=== PATIENT | female | born 1955 | race Caucasian/White ===

== ENCOUNTER → 2016-10-18 | Outpatient (CLI) | payer OTHER ==
--- NOTE | 2016-10-18 15:22 | US ---
EXAMINATION TYPE: US venous doppler duplex LE BI DATE OF EXAM: 10/18/2016 1:09 PM COMPARISON: NONE CLINICAL HISTORY: 182.401 Leg Pain,182.402 RTM 79.661. S/P left hip replacement, left leg swelling SIDE PERFORMED: Bilateral VESSELS IMAGED: External Iliac Vein (EIV) Common Femoral Vein Deep Femoral Vein Greater Saphenous Vein * Femoral Vein Popliteal Vein Small Saphenous Vein * Proximal Calf Veins (* superficial vessels) Right Leg: Negative for DVT Left Leg: Negative for DVT, probable Aguilera's Cyst left pop fossa= 3.8 x 2.1 x 2.2 cm IMPRESSION: No evidence for DVT.
== END | disposition home or self-care (01) ==
LOC: RADUSWWP 12:44
PROVIDERS: ATTEND Orthopaedic Surgery
DX: M79.606 Pain in leg, unspecified (principal); M79.89 Other specified soft tissue disorders
CPT/HCPCS: 93970

== ENCOUNTER → 2017-01-11 | Outpatient (CLI) | payer OTHER ==
--- NOTE | 2017-01-11 12:08 | XR ---
EXAMINATION TYPE: XR abdomen 1V DATE OF EXAM ORDERED: 01/11/2017 10:49 AM HISTORY: R10.32 Left lower quadrant pain. COMPARISON: None. FINDINGS: There is a left hip arthroplasty in place. The abdominal gas pattern is normal. There is no evidence of obstruction or free air. There is a ques tionable 4.3 mm calcification overlying the upper pole of the left kidney. There is a phlebolith in t he left hemipelvis. There is mild degenerative change in the lumbar spine. IMPRESSION: I CANNOT EXCLUDE A LEFT UPPER POLE RENAL CALCULUS.
== END | disposition home or self-care (01) ==
LOC: RADXRMAIN 10:33
PROVIDERS: ATTEND Family Medicine
DX: R10.32 Left lower quadrant pain (principal)
CPT/HCPCS: 74000

== ENCOUNTER 2017-02-08 06:26 | Day surgery (SDC) | payer OTHER ==
[2017-02-07 10:10] VITALS: BMI 24.7
[~2017-02-08 06:26] MED LIST: DEXAMETHASONE SOD PHOSPHATE 10 MG/ML 1 ML VIAL IV ONE; HEPARIN SODIUM,PORCINE 5,000 UNIT/ML 1 ML VIAL SQ ONE; HYDROmorphone 1 MG/ML 1 ML SYRINGE IVP PRN; LACTATED RINGERS 1,000 ML IV SCH; MIDAZOLAM 2 MG/2 ML VIAL IV PRN; ONDANSETRON 4 MG/2 ML VIAL IVP ONE; Pre Op ABX Message 1 EACH MISC MISCELLANE ONE; SCOPOLAMINE 1.5MG/72HR PATCH TRANSDERM ONE
[2017-02-08 06:46] VITALS: RESP 18; TEMP 98.1
[2017-02-08] MEDS ORDERED: LIDOCAINE 1% 20 ML VIAL (10MG/ML) FOR IV START INTRADERMA ONE (07:03)
[2017-02-08] MEDS ORDERED: PROPOFOL 10 MG/ML 20 ML VIAL IV ONE (08:06)
[2017-02-08] MEDS ORDERED: MIDAZOLAM 2 MG/2 ML VIAL ONE (08:06)
[2017-02-08] MEDS ORDERED: fentaNYL (PF) 50 MCG/ML 2 ML AMP ONE (08:06)
[2017-02-08] MEDS ORDERED: SODIUM CHLORIDE 0.9% 50 ML with ceFAZolin 2,000 MG IV ONE ×2 (08:06)
[2017-02-08] MEDS ORDERED: KETOROLAC 30 MG/ML 1 ML VIAL ONE (08:06)
[2017-02-08] MEDS ORDERED: ePHEDrine 50 MG/ML 1 ML AMP ONE (08:06)
[2017-02-08] MEDS ORDERED: BUPIVACAIN-EPI 0.25%-1:200,000 30 ML VIAL SQ ONE (08:24)
[2017-02-08] MEDS ORDERED: LACTATED RINGERS 1,000 ML IV ONE (09:06)
[2017-02-08 09:34] VITALS: BP 102/61; PULSE 90
--- NOTE | 2017-02-08 14:43 | P.OP ---
Date of Procedure: 02/08/17 Preoperative Diagnosis: Multiple infected cysts in back and chest and abdomen Postoperative Diagnosis: Same Procedure(s) Performed: Excision multiple's infected cyst in back,chest and abdominal wall Anesthesia: MAC, local Pathology: other Condition: stable Indications for Procedure: 61 years old female presents with multiple draining cyst along the upper back and abdomen and chest. Informed consent obtained and she elected to undergo surgical excision Description of Procedure: The patient was brought to the operating room and placed in lateral decubitus position. IV sedation was given as per anesthesia team. A timeout was performed to verify correct patient and correct procedure. Chlorhexidine was used to prep the skin followed by application of sterile drapes. A 2 x 0.8 x 1.2 cm skin incision was made overlying the area of maximum fluctuance in the upper back. The entire cyst was excised along with the wall using Bovie electrocautery. The resulting defect was closed in 2 layers using 3-0 Vicryl and interrupted sutures of 3-0 nylon. Patient was then positioned supine. There were 3 areas of purulent drainage along left upper abdomen and left chest. A 1 x 2 cm skin incision was made to remove the exudates of skin and underlying subcutaneous tissue. Another 1 x 2.2 cm skin incision was made to remove the underlying cyst. There were closed using interrupted sutures of 3-0 Nylon. Clean dressings applied. Patient tolerated procedure well Final Pathologic Diagnosis A. SKIN AND SUBCUTANEOUS TISSUE, BACK, EXCISION: EPIDERMAL INCLUSION CYST WITH ADJACENT CHRONIC INFLAMMATION. B. SKIN AND SUBCUTANEOUS TISSUE, ABDOMEN AND LEFT CHEST, EXCISION: EPIDERMAL INCLUSION CYST WITH FEATURES OF RUPTURE. * Gross Description A. Specimen is labeled back cyst and consists of a 2 x 0.8 cm unoriented skin ellipse excised to a maximum depth of 1.1 cm. The puckered garcia surface exhibits a near central 0.6 x 0.3 cm defect, which is more than 0.1 cm from the closest cutaneous resection margin. The resection margin is inked black and the specimen serially sectioned. Cut surfaces show an approximately 0.8 cm irregular smooth walled intact cyst devoid of contents. The cyst is surrounded by fibrous and fatty soft tissue. Entirely submitted. 1C7NS B. Specimen is labeled abdomen and left chest cyst and consists of 3 unoriented, undesignated ellipses of garcia skin ranging from 0.7 to 2.3 cm in greatest dimension. The skin surface of each fragment is slightly puckered and a discrete lesion is not seen grossly. The resection margin of each fragment is inked black and the two largest fragments are serially sectioned. Cut surfaces of the largest fragment show an approximately 1 cm focally abscessed area with soft red-garcia cut surfaces. The abscess area grossly extends to the cutaneous resection margin. Cut surfaces of the second fragment are firm garcia and exhibit a 0.2 cm possible cystic lesion. The two smallest fragments are bisected and cut surfaces of both fragments are rubbery garcia. A distinct cystic lesion is not identified
== END 2017-02-08 10:24 | disposition home or self-care (01) ==
LOC: OR 06:26
PROVIDERS: ATTEND Surgery
DX: L72.0 Epidermal cyst (principal); I10 Essential (primary) hypertension; Z91.041 Radiographic dye allergy status; Z79.899 Other long term (current) drug therapy
CPT/HCPCS: 88304; 87070; 87205; 87075; 87077; 87186; 11402 ×2; 12031; 11403; J2250; J1644; J1100; J2405; J3010; J1885; J0690; J2704

== ENCOUNTER → 2017-07-23 | Outpatient (CLI) | payer OTHER ==
--- NOTE | 2017-07-23 15:17 | XR ---
Right foot HISTORY: Right foot pain, trauma 3 views of the right foot No comparisons Bone mineralization is reduced. Alignment and joint spaces are maintained. Normal variant segmentatio n anomaly fourth digit. There is a plantar calcaneal spur. IMPRESSION: No acute fracture or dislocation.
--- NOTE | 2017-07-23 15:18 | XR ---
Right ankle HISTORY: Trauma and pain 3 views of the right ankle No comparisons There is soft tissue swelling present. Bone mineralization is reduced. Alignment and joint spaces are maintained. There is a plantar calcaneal spur. IMPRESSION: No acute fracture or dislocation.
--- NOTE | 2017-07-23 15:19 | XR ---
Right knee HISTORY: Right knee pain Reviews of the right knee No comparisons There is marginal spurring and joint space loss especially in the medial compartment. Small suprapate llar joint effusion is suspected. Bone mineralization is reduced. Alignment is maintained. There is s oft tissue swelling. There are vascular calcifications suspected. IMPRESSION: Osteoarthritis, small joint effusion.
== END | disposition home or self-care (01) ==
LOC: RADXRMAIN 12:40
PROVIDERS: ATTEND Family Medicine
DX: M17.11 Unilateral primary osteoarthritis, right knee (principal); M79.671 Pain in right foot; M25.571 Pain in right ankle and joints of right foot

== ENCOUNTER → 2017-08-28 | Outpatient (CLI) | payer OTHER ==
[2017-08-28 15:08] LABS: Basophils # (A) 0.1 k/uL (0-0.2); Basophils % (A) 1 %; CHCM 32.2; Eosinophils # (A) 1.2 k/uL (0-0.7); Eosinophils % (A) 10 %; HDW 2.45; HGB 11.9 gm/dL (11.4-16.0); Luc # (Auto) 0.41; Luc % (Auto) 3; Lymphocytes # (A) 1.9 k/uL (1.0-4.8); Lymphocytes % (A) 15 %; MCV 96.8 fL (80.0-100.0); Mean Platelet Volume 6.5; Monocytes # (A) 0.7 k/uL (0-1.0); Monocytes % (A) 6 %; Neutrophils # (A) 7.9 k/uL (1.3-7.7); Neutrophils % (A) 66 %; RBC 3.83 m/uL (3.80-5.40); RDW 12.8 % (11.5-15.5); WBC 12.1 k/uL (3.8-10.6); WBC (Perox) 12.67
[2017-08-28 15:19] LABS: Appearance,Urine Cloudy (Clear); Bacteria,Urine Many /hpf; Bilirubin,Urine Negative (Negative); Glucose,Urine (UA) Negative (Negative); Ketones,Urine Negative (Negative); Leukocyte Esterase,Urine Moderate (Negative); Nitrite,Urine Negative (Negative); PH, Urine 5.5 (5.0-8.0); Particle Count 7836; Protein,Urine 1+ (Negative); RBC,Urine 114 /hpf (0-5); Specific Gravity,Urine 1.025 (1.001-1.035); Squamous Epithelial Cell,Urine 17 /hpf (0-4); UA Billing (MACRO vs. MICRO) MICRO; WBC,Urine 7 /hpf (0-5)
[2017-08-28 16:01] LABS: Erythrocyte Sedimentation Rate 67 mm/hr (0-20)
== END | disposition home or self-care (01) ==
LOC: LABWHC1 14:28
PROVIDERS: ATTEND Physician Assistant
DX: S70.02XS Contusion of left hip, sequela (principal)
CPT/HCPCS: 36415; 81001; 85025; 85652; 86140

== ENCOUNTER → 2018-03-04 | Outpatient (CLI) | payer OTHER ==
--- NOTE | 2018-03-04 15:09 | BD ---
EXAMINATION TYPE: Axial Bone Density DATE OF EXAM: 03/04/2018 COMPARISON: NONE CLINICAL HISTORY: 62 YR OLD FEMALE.....ICD-10 CODE: M19.90 OA Height: 60.4 Weight: 153 FRAX RISK QUESTIONS: Family History (Parent hip fracture): YES History of Fracture in Adulthood: YES Current Tobacco Use: YES, 1 PAC DAILY RISK FACTORS HISTORY OF: Hip Fracture LT HIP FX, 2 YRS AGO RT SIDE OF PELVIS FRACTURED NOW, BUT NOT RT HIP History of Wrist Fracture: LT WRIST FX WITH SURGICAL REPAIR...> 49 YRS OLD Surgery to LT HIP, TOTAL HIP REPLACEMENT 2 YRS AGO Family History of Osteoporosis: YES, MOTHER WITH BOTH HIP FX, AND SACRAL FX Active: NO USING WHEELCHAIR AND WALKER Diet low in dairy products/other sources of calcium: NO Postmenopausal woman: YES AT AGE 44 Take estrogen and/or progesterone medications: IN PAST, FOR COUPLE YRS ONLY Lost more than 2 inches in height since high school: YES Frequent falls: UNSTEADY MEDICATIONS: Additional Medications: BP MEDS, PAXIL, XANAX, NSAIDS, PAIN MEDS Additional History: DIET CONTROLLED DIABETES, MULTIPLE FXS, OSTEOARTHRITIS EXAM MEASUREMENTS: Bone mineral densitometry was performed using the [employer] System. Bone mineral density as measured about the Lumbar spine is: ----- L1-L4(G/cm2): 1.087 T Score Values are as follows: ----- L1: -1.1 ----- L2: -1.1 ----- L3: -0.6 ----- L4: -0.5 ----- L1-L4: -0.8 Bone mineral density FIRST BONE DENSITY AT MPH Bone mineral density about the R hip (g/cm2): 0.666 T Score values are as follows: -----R Neck: -2.6 -----R Total: -2.7 Bone mineral density FIRST BONE DENSITY AT MPH FRAX%S: THERE IS A 37.4% CHANCE OF A MAJOR OSTEOPOROTIC FX AND A 8.3% FOR A HIP FX.....PROBABILIT Y OF FX IN 10 YRS TIME IMPRESSION: Osteoporosis NOTE: T-SCORE=SD OF THE YOUNG ADULT MEAN.
== END | disposition home or self-care (01) ==
LOC: RADBDWWP 12:25
PROVIDERS: ATTEND Family Medicine
DX: M81.0 Age-related osteoporosis without current pathological fracture (principal)
CPT/HCPCS: 77080

== ENCOUNTER → 2019-04-28 | Outpatient (CLI) | payer OTHER ==
--- NOTE | 2019-04-28 13:47 | XR ---
EXAMINATION TYPE: XR Hip Bilateral Complete DATE OF EXAM: 04/28/2019 COMPARISON: NONE HISTORY: Pain TECHNIQUE: 2 views submitted of each hip FINDINGS: There is nonunion chronic fractures involving the superior and inferior pubic ramus of the right hip. Moderate concentric narrowing of the hip joint. No erosive changes. Chronic appearing deformities of the left superior and inferior pubic ramus compatible with remote fr acture. Postoperative change in near-anatomic alignment. IMPRESSION: 1. Right hip arthropathy with findings suggestive of remote nonunion fractures involving the right hennessy perior and inferior pubic rami. 2. Postsurgical change involving the left hip with healed remote fractures involving the left superio r and inferior pubic rami.
--- NOTE | 2019-04-28 13:49 | XR ---
EXAM TYPE: LUMBAR SPINE X RAY SERIES COMPARISON: NONE HISTORY: Pain TECHNIQUE: 4 views are submitted. FINDINGS: Alignment is anatomic. The pedicles are intact. The transverse processes are intact. There is no s pondylolysis or spondylolisthesis. There are 3 calcifications overlying the right kidney all measuri ng less than 5 mm. There are 2 calcifications overlying the left kidney the largest measuring 4.5 mm. Vascular calcifications are noted. There is multilevel moderate to severe degenerative disc disease with facet arthropathy and grade 1 a nterolisthesis L5 on S1. Severe facet arthropathy L5-S1. Diffuse osteopenia noted. IMPRESSION: 1. Multilevel moderate to severe degenerative disc disease with facet arthropathy and grade 1 anterol isthesis L5 on S1. 2. Correlate for bilateral nephrolithiasis
== END | disposition home or self-care (01) ==
LOC: RADXRMAIN 13:10
PROVIDERS: ATTEND Family Medicine
DX: M16.11 Unilateral primary osteoarthritis, right hip (principal); M43.16 Spondylolisthesis, lumbar region; M51.36 Other intervertebral disc degeneration, lumbar region; M46.96 Unspecified inflammatory spondylopathy, lumbar region; Z98.890 Other specified postprocedural states
CPT/HCPCS: 72110; 73521

== ENCOUNTER → 2019-05-20 | Outpatient (CLI) | payer OTHER ==
--- NOTE | 2019-05-20 14:21 | MR ---
EXAMINATION TYPE: MR lumbar spine wo con DATE OF EXAM: 05/20/2019 1:39 PM COMPARISON: NONE HISTORY: Spondylolisthesis, lumbar region Multiplanar, MultiSpin echo imaging of the lumbar spine was performed. L1-L2: Severe disc desiccation. Moderate circumferential disc bulge greatest posteriorly with effacem ent of the ventral thecal sac. No evidence for central stenosis or lateral recess stenosis. Foramina are patent bilaterally. L2-L3: Severe disc desiccation. Moderate circumferential disc bulge greatest posteriorly with effacem ent of the ventral thecal sac. No evidence for central stenosis or lateral recess stenosis. Foramina are patent bilaterally. L3-L4: Severe disc desiccation. Moderate circumferential disc bulge greatest posteriorly with effacem ent of the ventral thecal sac. No evidence for central stenosis or lateral recess stenosis. Foramina are patent bilaterally. L4-L5: Severe disc desiccation. Moderate circumferential disc bulge greatest posteriorly with effacem ent of the ventral thecal sac. No evidence for central stenosis or lateral recess stenosis. Foramina are patent bilaterally. L5-S1: Severe disc desiccation vacuum disc. Grade 1 anterolisthesis L5 on S1 measuring 6 mm. Subligam entous posterocentral disc herniation effaces the ventral thecal sac. Borderline lateral recess steno sis bilaterally. No central stenosis present. Lumbar segments are intact. No paraspinal masses are identified. Conus medullaris has a normal appe arance. IMPRESSION: 1. Multilevel degenerative disc disease with disc bulging. Disc herniation L5-S1 with bilateral later al recess stenosis suspected. See above.
== END | disposition home or self-care (01) ==
LOC: RADMRIMAIN 12:19
PROVIDERS: ATTEND Family Medicine
DX: M51.26 Other intervertebral disc displacement, lumbar region (principal); M51.27 Other intervertebral disc displacement, lumbosacral region; M43.17 Spondylolisthesis, lumbosacral region; M51.36 Other intervertebral disc degeneration, lumbar region
CPT/HCPCS: 72148

== ENCOUNTER → 2019-09-10 | Outpatient (CLI) | payer MEDICARE ==
--- NOTE | 2019-09-10 15:53 | BD ---
EXAMINATION TYPE: Axial Bone Density DATE OF EXAM: 09/10/2019 COMPARISON: 03.04.2018 CLINICAL HISTORY: 64 YR OLD FEMALE....ICD-10 CODE: Z78.0 POST MENOPAUSAL Height: 60.4 Weight: 120 FRAX RISK QUESTIONS: Family History (Parent hip fracture): YES History of Fracture in Adulthood: YES Current Tobacco Use: YES RISK FACTORS HISTORY OF: Hip Fracture LT HIP, FROM FALL, RODDED WITH SCREWS, 2-3 YRS AGO Surgery to LT HIP...MARIBELL AND PINS Family History of Osteoporosis: YES, HER MOTHER AND MATERNAL AUNTS X2...WITH BROKEN HIPS Postmenopausal woman: YES AT AGE 47 YRS OLD Take estrogen and/or progesterone medications: IN PAST FOR ABOUT 1 YR Hyperparathyroidism: NO Adrenal Insufficiency: NO MEDICATIONS: Osteoporosis Medications: YES, FOSAMAX ONCE A WEEK FOR ABOUT 1 1/2 YRS Additional Medications: BP MEDS, PAXIL, XANAX, DIABETIC MEDS, Additional History: OSTEOPOROSIS, HYPERTENSION, DIABETIC, OSTEOARTHRITIS EXAM MEASUREMENTS: Bone mineral densitometry was performed using the [employer] System. Bone mineral density as measured about the Lumbar spine is: ----- L1-L4(G/cm2): 1.178 T Score Values are as follows: ----- L1: -0.5 ----- L2: -0.1 ----- L3: 0.0 ----- L4: 0.2 ----- L1-L4: 0.0 Bone mineral density has: Increased 8.4% since study of: 03.04.2018 Bone mineral density about the R hip (g/cm2): 0.643 T Score values are as follows: -----R Neck: -2.9 -----R Total: -2.9 Bone mineral density has: Decreased -3.5% since study of: 03.04.2018 FRAX%s: THERE IS A 41.1% CHANCE FOR A MAJOR OSTEOPOROTIC FX AND A 12.2% FOR HIP.....PROBABILITY FOR FX IN 10 YRS TIME IMPRESSION: Osteoporosis of the right femur. NOTE: T-SCORE=SD OF THE YOUNG ADULT MEAN.
--- NOTE | 2019-09-14 08:53 | MM ---
Reason for exam: screening (asymptomatic). History: Patient is postmenopausal. Physical Findings: A clinical breast exam by your physician is recommended on an annual basis and results should be correlated with mammographic findings. MG Screening Mammo w CAD Bilateral CC and MLO view(s) were taken. No prior studies available for comparison. The breast tissue is heterogeneously dense. This may lower the sensitivity of mammography. There is no discrete abnormality. ASSESSMENT: Negative, BI-RAD 1 RECOMMENDATION: Routine screening mammogram of both breasts in 1 year.
== END | disposition home or self-care (01) ==
LOC: RADMAMWWP 14:26
PROVIDERS: ATTEND Family Medicine
DX: Z12.31 Encounter for screening mammogram for malignant neoplasm of breast (principal); M81.8 Other osteoporosis without current pathological fracture; Z78.0 Asymptomatic menopausal state
CPT/HCPCS: 77067; 77080

== ENCOUNTER → 2019-10-02 | Outpatient (CLI) | payer MEDICARE ==
[~2019-10-02] MED LIST changes: -DEXAMETHASONE SOD PHOSPHATE 10 MG/ML 1 ML VIAL IV ONE; -HEPARIN SODIUM,PORCINE 5,000 UNIT/ML 1 ML VIAL SQ ONE; -HYDROmorphone 1 MG/ML 1 ML SYRINGE IVP PRN; -LACTATED RINGERS 1,000 ML IV SCH; -MIDAZOLAM 2 MG/2 ML VIAL IV PRN; -ONDANSETRON 4 MG/2 ML VIAL IVP ONE; -Pre Op ABX Message 1 EACH MISC MISCELLANE ONE; -SCOPOLAMINE 1.5MG/72HR PATCH TRANSDERM ONE; +SODIUM CHLORIDE 0.9% 500 ML 500 ML in EMPTY BAG 1 BAG IV PRN; +ZOLEDRONIC ACID 5 MG in SODIUM CHLORIDE 0.9% 100 ML IV NR
[2019-10-02 12:45] VITALS: RESP 16
[2019-10-02 12:56] VITALS: BP 156/90; PULSE 60; TEMP 98.3
== END | disposition home or self-care (01) ==
LOC: PROCWHC3 12:13
PROVIDERS: ATTEND Family Medicine
DX: M81.0 Age-related osteoporosis without current pathological fracture (principal)
CPT/HCPCS: 96365; J3489

== ENCOUNTER → 2020-01-26 | Outpatient (CLI) | payer MEDICARE ==
[2020-01-26 18:55] LABS: African American GFR (CKD) 68.5 (60.0-200.0); Anion Gap 7.2 mmol/L (4.00-12.00); Calcium 9.8 mg/dL (8.7-10.3); Carbon Dioxide 23.8 mmol/L (21.6-31.8); Chol/HDL Ratio 3.17; LDL Cholesterol,Calculated 133.4 mg/dL (0.0-131.0); Non-African American GFR(CKD) 59.1 (60.0-200.0); VLDL Calculation 16.6 mg/dL (5.00-40.00)
[2020-01-26 23:07] LABS: Hemoglobin A1C 7.9 % (4.0-6.0)
== END | disposition home or self-care (01) ==
LOC: LABWHC1 11:41
PROVIDERS: ATTEND Internal Medicine
DX: E11.65 Type 2 diabetes mellitus with hyperglycemia (principal)
CPT/HCPCS: 36415; 80048; 80061; 83036

== ENCOUNTER → 2020-04-25 | Outpatient (CLI) | payer MEDICARE ==
[2020-04-25 20:47] LABS: Hemoglobin A1C 6.9 % (4.0-6.0)
[2020-04-25 21:34] LABS: Anion Gap 5.5 mmol/L (4.00-12.00); BUN/Creat Ratio 20.91 Ratio (12.00-20.00); Calcium 9.4 mg/dL (8.7-10.3); Carbon Dioxide 22.5 mmol/L (21.6-31.8); Chol/HDL Ratio 2.45; LDL Cholesterol,Calculated 59.8 mg/dL (0.0-131.0); Non-African American GFR(CKD) 52.6 (60.0-200.0); Potassium 4.8 mmol/L (3.5-5.5); VLDL Calculation 20.2 mg/dL (5.00-40.00)
== END | disposition home or self-care (01) ==
LOC: LABWHC1 13:01
PROVIDERS: ATTEND Internal Medicine
DX: E11.65 Type 2 diabetes mellitus with hyperglycemia (principal)
CPT/HCPCS: 36415; 80048; 80061; 83036

== ENCOUNTER → 2020-10-10 | Outpatient (CLI) | payer MEDICARE ==
--- NOTE | 2020-10-10 09:32 | BD ---
EXAMINATION TYPE: Axial Bone Density DATE OF EXAM: 10/10/2020 COMPARISON: 09.10.2019 CLINICAL HISTORY: 65 YR OLD FEMALE.....ICD-10 CODE: OSTEOPOROSIS Height: 60 Weight: 115 FRAX RISK QUESTIONS: Family History (Parent hip fracture): YES History of Fracture in Adulthood: YES Secondary Osteoporosis: YES 1. Type 1 Diabetes: YES Current Tobacco Use: YES RISK FACTORS HISTORY OF: Hip LT HIP....WITH REPLACEMENT, RT HIP FEMUR FX >49 YRS OLD History of Wrist Fracture: LT WRIST WITH SURGICAL REPAIR PLATES AND SCREWS, >49 YRS OLD Surgery to LT HIP AND LT WRIST Family History of Osteoporosis: YES, MOTHER, WITH HIP FX Postmenopausal woman: YES AT AGE 49 YRS OLD Take estrogen and/or progesterone medications: YES IN THE PAST FOR ABOUT 3 YRS Lost more than 2 inches in height since high school: YES Hyperparathyroidism: NO Adrenal Insufficiency: NO MEDICATIONS: Additional Medications: BP MEDS, XANAX, DIABETIC MEDS AND INSULIN, RECENTLY REMOVED FROM THE INSULIN, Additional History: DIABETIC, HYPERTENSION, MULTIPLE FXS EXAM MEASUREMENTS: Bone mineral densitometry was performed using the [employer] System. Bone mineral density as measured about the Lumbar spine is: ----- L1-L4(G/cm2): 1.186 T Score Values are as follows: ----- L1: -0.2 ----- L2: -0.4 ----- L3: -0.3 ----- L4: 0.7 ----- L1-L4: 0.0 Bone mineral density has: Decreased -0.2% since study of: 09.10.2019 Bone mineral density about the R hip (g/cm2): 0.630 T Score values are as follows: -----R Neck: -2.9 -----R Total: -2.9 Bone mineral density has: Decreased -2.0% since study of: 09.10.2019 FRAX%s: THERE IS A 34.2% CHANCE FOR A MAJOR OSTEOPOROTIC FX AND A 9.0% FOR HIP.......PROBABILITY FO R FX IN 10 YRS TIME IMPRESSION: Osteoporosis (T Score less than -2.5). There is increased fracture risk and therapy is usually indicated based on age. Re-Screen 1-2 years. NOTE: T-SCORE=SD OF THE YOUNG ADULT MEAN.
--- NOTE | 2020-10-11 10:40 | MM ---
Reason for exam: screening (asymptomatic). Last mammogram was performed 1 year and 1 month ago. History: Patient is postmenopausal. Physical Findings: A clinical breast exam by your physician is recommended on an annual basis and results should be correlated with mammographic findings. MG 3D Screening Mammo W/Cad Bilateral CC and MLO view(s) were taken. Prior study comparison: September 10, 2019, bilateral MG screening mammo w CAD. The breast tissue is heterogeneously dense. This may lower the sensitivity of mammography. Finding #1: There is a 12 mm equal density (isodense), oval mass in the lower inner quadrant of the left breast. Finding #2: There are typically benign calcifications in both breasts. Nodule cluster 5mm left outer breast. ASSESSMENT: Incomplete: need additional imaging evaluation, BI-RAD 0 RECOMMENDATION: Special view mammogram of the left breast. If lesion persists on supplemental views, image directed ultrasound is recommended. [facility] will attempt to contact patient to return for supplemental views and ultrasound if indicated.
== END | disposition home or self-care (01) ==
LOC: RADBDWWP 07:46
PROVIDERS: ATTEND Family Medicine
DX: Z12.31 Encounter for screening mammogram for malignant neoplasm of breast (principal); M81.0 Age-related osteoporosis without current pathological fracture
CPT/HCPCS: 77063; 77067; 77080

== ENCOUNTER → 2020-10-20 | Outpatient (CLI) | payer MEDICARE ==
--- NOTE | 2020-10-21 10:22 | MM ---
Reason for exam: additional evaluation requested from abnormal screening. Last mammogram was performed less than 1 month ago. History: Patient is postmenopausal. Physical Findings: Nurse Summary: 1cm sebaceous cyst in the left breast at 7 o'clock (nurse nathan). MG 3D Work Up W/Cad LT Spot compression CC, spot compression MLO, and LM view(s) were taken of the left breast. Prior study comparison: October 10, 2020, bilateral MG 3d screening mammo w/cad. September 10, 2019, bilateral MG screening mammo w CAD. There are scattered fibroglandular densities. Focal asymmetry on CC, not on compression. Short term follow up recommended. These results were verbally communicated with the patient and result sheet given to the patient on 10/20/20. ASSESSMENT: Probably benign, BI-RAD 3 RECOMMENDATION: Follow-up diagnostic mammogram of the left breast in 6 months. Manage on a clinical basis with regard to palpable area left inferior MLO.
== END | disposition home or self-care (01) ==
LOC: RADMAMWWP 14:42
PROVIDERS: ATTEND Family Medicine
DX: R92.8 Other abnormal and inconclusive findings on diagnostic imaging of breast (principal)
CPT/HCPCS: 77065; G0279; 77061

== ENCOUNTER → 2020-11-18 | Outpatient (CLI) | payer MEDICARE ==
[2020-11-18 08:23] VITALS: BP 129/73; PULSE 100; RESP 16; TEMP 98.7
== END | disposition home or self-care (01) ==
LOC: PROCWHC3 08:12
PROVIDERS: ATTEND Family Medicine
DX: M81.0 Age-related osteoporosis without current pathological fracture (principal)
CPT/HCPCS: 96365; J3489

== ENCOUNTER → 2021-03-27 | Outpatient (CLI) | payer MEDICARE ==
--- NOTE | 2021-03-27 12:14 | CT ---
EXAMINATION TYPE: CT abdomen pelvis wo con DATE OF EXAM: 03/27/2021 COMPARISON: None HISTORY: 65-year-old female R10, Abdomen pain, rapid weight loss, back pain, decreased appetite. CT DLP: 203.9 mGycm. Automated exposure control for dose reduction was used. TECHNIQUE: Contiguous axial scanning of the abdomen and pelvis without IV contrast. Coronal and sagit jesse reconstructions performed. FINDINGS: Heart normal size without pericardial effusion. Small hiatal hernia. Bands of atelectasis in the lowe r lungs. Noncontrast appearance of the liver, gallbladder, right adrenal gland, spleen, and pancreas show no g ross abnormality. Mild diffuse low-density thickening of the left adrenal gland without discrete nodularity. 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 Bilateral nephrolithiasis measuring up to 8 mm. There is moderate right-sided hydronephrosis. 8 mm and 7 mm calculi within minor calyceal systems on the r ight. Unable to clearly identify the right ureter. There may be a UPJ stricture. No dilated small bowel, free fluid, or free air. No obvious mesenteric or retroperitoneal lymphadenop athy. Moderate atherosclerotic calcifications abdominal aorta. Moderate stool within the left side of the colon. Sigmoid diverticulosis without pericolonic inflamma tory change. Bladder not distended. Uterus not seen. Neither ovary clearly delineated from clustered bowel loops. No abnormal fluid collection in the pelvis or pelvic lymphadenopathy. Bones: Left total hip arthroplasty. Osteopenia. Chronic healed fracture deformities both superior and inferior pubic rami. Mild degenerative change right hip. Advanced hypertrophic facet arthropathy mid to lower lumbar spine with a grade 1, nearly grade 2 anterolisthesis L5-S1. Baastrup's disease. Mode rate to advanced degenerative disc disease throughout. IMPRESSION: 1. Incidental horseshoe kidney with nephrolithiasis measuring up to 8 mm. A couple calculi measuring up to 8 mm are present in the right renal minor calyces. There is moderate right-sided hydronephrosis but the right ureter does not appear dilated. Unable to exclude underlying UPJ stricture. 2. Sigmoid diverticulosis. Moderate stool burden.
== END | disposition home or self-care (01) ==
LOC: RADCTMAIN 07:47
PROVIDERS: ATTEND Family Medicine
DX: N13.2 Hydronephrosis with renal and ureteral calculous obstruction (principal); Q63.1 Lobulated, fused and horseshoe kidney; K57.30 Diverticulosis of large intestine without perforation or abscess without bleeding
CPT/HCPCS: 74176

== ENCOUNTER → 2021-05-10 | Outpatient (CLI) | payer MEDICARE ==
[~2021-05-10] MED LIST changes: +FUROSEMIDE 10 MG/ML 2 ML VIAL IV ONE; -SODIUM CHLORIDE 0.9% 500 ML 500 ML in EMPTY BAG 1 BAG IV PRN; -ZOLEDRONIC ACID 5 MG in SODIUM CHLORIDE 0.9% 100 ML IV NR
--- NOTE | 2021-05-10 14:41 | NM ---
EXAMINATION TYPE: NM lasix renogram DATE OF EXAM: 05/10/2021 COMPARISON: NONE HISTORY: Hydronephrosis Following administration of 9.9 mCi Tc 99m MAG3 with 20mg Lasix. Immediate images post injection FINDINGS: Left: 26.4 %. Right: 73.6 %. Max renal flow left: 11 minutes. Max renal flow right: 73.6 minutes. Asymmetric accumulation of radiotracer within both renal collecting . Findings are suggestive of hydr onephrosis on the left. After the administration of Lasix, there is used excretion from from the righ t kidney. T 1/2 left: 26.4 MINUTES minutes. T 1/2 right: N/A minutes. IMPRESSION: Abnormal renal split function as measured above with findings compatible with right-sided hydronephro sis.
== END | disposition home or self-care (01) ==
LOC: RADNMMAIN 12:41
PROVIDERS: ATTEND Urology
DX: N13.30 Unspecified hydronephrosis (principal)
CPT/HCPCS: 78708; A9562

== ENCOUNTER → 2021-05-26 | Outpatient (CLI) | payer MEDICARE ==
[2021-05-26 12:11] LABS: Basophils # (A) 0.1 k/uL (0-0.2); Basophils % (A) 1 %; Eosinophils # (A) 0.4 k/uL (0-0.7); Eosinophils % (A) 4 %; HCT 37.4 % (34.0-46.0); HGB 12.1 gm/dL (11.4-16.0); Lymphocytes # (A) 2.1 k/uL (1.0-4.8); Lymphocytes % (A) 25 %; MCH 32.8 pg (25.0-35.0); MCHC 32.2 g/dL (31.0-37.0); MCV 101.8 fL (80.0-100.0); Macrocytosis Slight; Mean Platelet Volume 7.5; Monocytes # (A) 0.5 k/uL (0-1.0); Monocytes % (A) 6 %; Neutrophils # (A) 5.2 k/uL (1.3-7.7); Neutrophils % (A) 61 %; Platelet Count 278 k/uL (150-450); RBC 3.68 m/uL (3.80-5.40); RDW 13.4 % (11.5-15.5); WBC 8.6 k/uL (3.8-10.6)
[2021-05-26 12:32] LABS: Potassium 5.5 mmol/L (3.5-5.1)
[2021-05-26 12:50] LABS: Appearance,Urine Cloudy (Clear); Bacteria,Urine Occasional /hpf; Bilirubin,Urine Negative (Negative); Blood,Urine Negative (Negative); Color,Urine Yellow; Glucose,Urine (UA) 4+ (Negative); Hyaline Casts,Urine 1 /lpf (0-2); Ketones,Urine Negative (Negative); Leukocyte Esterase,Urine Moderate (Negative); Mucus,Urine Rare /hpf; Nitrite,Urine Negative (Negative); Protein,Urine Trace (Negative); RBC,Urine 4 /hpf (0-5); Squamous Epithelial Cell,Urine 18 /hpf (0-4); WBC,Urine 22 /hpf (0-5)
== END | disposition home or self-care (01) ==
LOC: LABPAT 11:24
PROVIDERS: ATTEND Urology
DX: Z01.812 Encounter for preprocedural laboratory examination (principal); N20.0 Calculus of kidney; Z01.818 Encounter for other preprocedural examination; N13.30 Unspecified hydronephrosis; E11.9 Type 2 diabetes mellitus without complications; N39.0 Urinary tract infection, site not specified
CPT/HCPCS: 36415; 80048; 81001; 85025; 87086

== ENCOUNTER 2021-06-01 09:13 | Day surgery (SDC) | payer MEDICARE ==
[2021-05-29 17:24] VITALS: BMI 18.1
--- NOTE | 2021-06-01 08:00 | P.HPIHPCON ---
History of Present Illness H&P Date: 05/29/21 This is a 65 yo female with hx of horseshoe kidney and right sided hydronephrosis. She underwent Mag3 renogram which showed evidence of delayed drainage. Of note she also hx multiple right sided renal stone. Discussed with her the option of doing a RPG and possibile ureteroscopy to better define her ureteral anatomy. Discussed if there is evidence of stricture then we can do ureteral balloon dilation at the same setting. Discussed with her the success of endoscopy for UPJ obstruction is low, and if she does fail that the next step is to proceed with a pyeloplasty. Discussed with her pyeloplasty would be more complicated given her horseshoe kidney. Discussed with her we'll try to address her renal stones at the same setting. Discussed that the stones are in the lower pole, they may not be accessible ureteroscope. Discussed with her the risk which includes but not limited to bleeding, infection, injury to the ureter. She understood all the risk and agreed to proceed Consent for Procedure: I have explained the operation/procedure to the patient, including the risks, benefits, side effects, alternative therapies (including not receiving the proposed treatment or service), the likelihood of the patient achieving his/her goals, and potential recuperation problems for the procedure/sedation/analgesia, as well as any blood products, if indicated. I also explained to the patient the risks, benefits and side effects of the alternatives, as well as the risks related to not receiving the proposed procedure, care, treatment, or services. Past Medical History Past Medical History: Diabetes Mellitus, Hypertension, Renal Disease Additional Past Medical History / Comment(s): kidney stones, osteoporosis History of Any Multi-Drug Resistant Organisms: None Reported Past Surgical History: Joint Replacement, Orthopedic Surgery Additional Past Surgical History / Comment(s): LEFT WRIST, left hip REPLACED, LITHOTRIPSY, PERCUTANIOUS KIDNEY STONE REMOVAL X2 Past Anesthesia/Blood Transfusion Reactions: No Reported Reaction Past Psychological History: Anxiety, Depression Smoking Status: Current every day smoker Past Alcohol Use History: Rare Additional Past Alcohol Use History / Comment(s): SMOKES 1/2 PPD FROM AGE 19 (1973) Past Drug Use History: None Reported - Past Family History Brother(s) Family Medical History: Cancer Additional Family Medical History / Comment(s): COLON Medications and Allergies Home Medications Medication Instructions Recorded Confirmed Type ALPRAZolam [Xanax] 1 mg PO BID 08/09/16 05/29/21 History PARoxetine HCL [Paxil] 40 mg PO DAILY 08/09/16 05/29/21 History Benazepril HCl [Lotensin] 20 mg PO QAM 02/07/17 05/29/21 History Acetaminophen Tab [Tylenol Tab] 500 - 1,000 mg PO BID PRN 02/08/17 05/29/21 History Atorvastatin [Lipitor] 20 mg PO DAILY 05/29/21 05/29/21 History Carboxymethylcellulose Sodium 1 drop BOTH EYES QID 05/29/21 05/29/21 History [Refresh Tears] Dapagliflozin Propanediol [Farxiga] 5 mg PO DAILY 05/29/21 05/29/21 History Insulin Glargine,Hum.rec.anlog 10 unit SQ QAM 05/29/21 05/29/21 History [Lantus Solostar Pen] Pioglitazone HCl 30 mg PO DAILY 05/29/21 05/29/21 History Vit C/E/Zn/Coppr/Lutein/Zeaxan 1 each PO DAILY 05/29/21 05/29/21 History [Preservision Areds 2 Softgel] amLODIPine BESYLATE 10 mg PO DAILY 05/29/21 05/29/21 History metFORMIN HCL [Glucophage] 1,000 mg PO BID-W/MEALS 05/29/21 05/29/21 History Allergies Allergy/AdvReac Type Severity Reaction Status Date / Time ivp dye AdvReac Mild Rash/Hives Uncoded 05/29/21 16:50 Surgical - Exam - General no distress, no pain - Eyes PERRL, normal ocular movement - ENT normal nares, normal mucosa - Respiratory normal expansion, normal respiratory effort - Abdomen Abdomen: soft, non tender Assessment and Plan Assessment: 65-year-old female history of right-sided hydronephrosis, right-sided renal stones -Or for right-sided ureteroscopy, with holmium laser lithotripsy, stone basketing, stent insertion, possible balloon dilation
[~2021-06-01 09:13] MED LIST changes: +DEXAMETHASONE SOD PHOSPHATE 4 MG/ML 1 ML VIAL IV ONE; -FUROSEMIDE 10 MG/ML 2 ML VIAL IV ONE; +HYDROmorphone 0.5 MG/0.5 ML SYRINGE IVP PRN; +LACTATED RINGERS 1,000 ML IV SCH; +LIDOCAINE 1% (10MG/ML) FOR IV START INTRADERMA PRN; +MIDAZOLAM 2 MG/2 ML VIAL IV PRN; +ONDANSETRON 4 MG/2 ML VIAL IVP ONE; +fentaNYL (PF) 50 MCG/ML 2 ML AMP IV PRN
--- NOTE | 2021-06-01 09:43 | XR ---
KUB HISTORY: Kidney stone Frontal KUB correlated to CT scan 03/27/2021 There are 2 calcifications in the right paraspinal location 1 which measures 9 to 10 mm, the second c alcification is just caudal and measures 6 mm. In the left paraspinal location there is a calcificati on measuring 6 mm. Vascular calcifications are noted within the pelvis. Postop change noted to the le ft hip. There is degenerative disc disease, spinal curvature. Bone mineralization is reduced. There i s overlying artifact. Old right and left pubic fractures are again noted. IMPRESSION: Bilateral nephrolithiasis.
[2021-06-01 09:58] LABS: Glucose,Whole Blood 199 mg/dL (75-99)
[2021-06-01] MEDS ORDERED: MIDAZOLAM 2 MG/2 ML VIAL IVP ONE (10:09)
[2021-06-01] MEDS ORDERED: PHENYLEPHRINE-0.9% NACL SYG 1,000 MCG/10 ML SYRINGE ONE (12:15)
[2021-06-01] MEDS ORDERED: VASOPRESSIN 20 UNIT/ML 1 ML VIAL ONE (12:15)
[2021-06-01] MEDS ORDERED: diphenhydrAMINE 50 MG/ML 1 ML VIAL ONE (12:15)
[2021-06-01] MEDS ORDERED: MIDAZOLAM 2 MG/2 ML VIAL ONE (12:15)
[2021-06-01] MEDS ORDERED: fentaNYL (PF) 50 MCG/ML 2 ML AMP ONE (12:15)
[2021-06-01] MEDS ORDERED: PROPOFOL 10 MG/ML 20 ML VIAL IV ONE (12:15)
[2021-06-01] MEDS ORDERED: SUCCINYLCHOLINE CHLORIDE 100 MG/5 ML SYR IV ONE (12:15)
[2021-06-01] MEDS ORDERED: LIDOCAINE 1% INJ 10MG/ML (20 ML MDV) ONE (12:15)
[2021-06-01] MEDS ORDERED: ePHEDrine SULFATE/0.9% NACL/PF 50 MG/5 ML SYRINGE IV ONE (12:15)
--- NOTE | 2021-06-01 12:16 | P.OP ---
Date of Procedure: 06/01/21 Preoperative Diagnosis: BPH, urinary retention Postoperative Diagnosis: Same Procedure(s) Performed: Robotic-assisted laparoscopic simple prostatectomy Implants: none Anesthesia: ЕЛЕНАA Surgeon: Dhruv Beckwith Cath Lab Nurse #1: Charlene Knapp Estimated Blood Loss (ml): 200 Pathology: other (prostate adenoma) Condition: stable Disposition: PACU Indications for Procedure: This is a 65 yo female with hx of horseshoe kidney and right sided hydronephrosis. She underwent Mag3 renogram which showed evidence of delayed drainage. Of note she also hx multiple right sided renal stone. Discussed with her the option of doing a RPG and possibile ureteroscopy to better define her ureteral anatomy. Discussed if there is evidence of stricture then we can do ureteral balloon dilation at the same setting. Discussed with her the success of endoscopy for UPJ obstruction is low, and if she does fail that the next step is to proceed with a pyeloplasty. Discussed with her pyeloplasty would be more complicated given her horseshoe kidney. Discussed with her we'll try to address her renal stones at the same setting. Discussed that the stones are in the lower pole, they may not be accessible ureteroscope. Discussed with her the risk which includes but not limited to bleeding, infection, injury to the ureter. She understood all the risk and agreed to proceed Operative Findings: Trilobar hyperplasia Description of Procedure: After preoperative antibiotics were started, the patient was taken to the operating room. Anesthesia was induced and the patient was placed in a supine position with adequate padding of the pressure points, shoulders, back, legs and arms. He was then prepped and draped in the standard fashion. A critical pause was performed using two patient identifiers. A 16F arroyo catheter was placed to gravity drainage. a supraumbilical incision was made superior to the umbilicus, insufflation was obtained using a Veress needle, after insufflation was obtained a 8mm robotic port was placed. Under direct vision a 8mm robotic ports was placed lateral to each rectus slightly below the camera port. The left iliac fossa 8mm port was placed. The right ass istant right iliac fossa 12mm port and right paramedian 5mm port were placed. After the patient was placed in the trendelenberg position, the robot was then docked to the 8mm robotic ports and then each robotic arm and tower was checked in relation to the patient's legs and hands to avoid inadvertent compression. The peritoneal cavity was inspected. Adhesions were taken down sharply along the left lower quadrant An inverted U-shaped incision began laterally to the left medial umbilical ligament and extended high across the midline to the right umbilical ligament. The limbs of the "U" extended to the level of the vasa on both sides. We next developed the preperitoneal space and the space of Retzius. of note patient had inuginal hernia along the right sided. Cautery was used to dissected the bladder away from the prostate, the incision was made in close proximity to the prostate, and incision was extended laterally and at this point the plane between the adenoma and the surgical capsule is identified. The posterior bladder neck was then incised, both ureteral orifices were visualized, and neither were injured The adenoma was dissected off of the capsule by combination of blunt dissection and minimum cautery. dissection was initially started along the posterior surface and this was carried laterally. The dissection was carried to the apex, at this point the urethral-prostatic junction was visualized and the prostate was transected at the junction. Prostate adenoma was placed in an endocatch bag . A 9and 9inch 3-0 V-Lock suture was used to anastomose the urethra and bladder, starting at the 6:00 posterior position. Mucosa was secured in every stitch, to ensure a mucosa to mucosa anastomosis. The stitch was regularly cinched and the anastomosis tightened. The 20 Fr Arroyo catheter was advanced, the bladder filled, and the anastomosis was tested. Anastomsis was watertight at 150 mL. balloon was inflated to 20 mL The robot was undocked. specimen was extracted from the supraumbilical incision. The periumbilical fascia was closed with 1-0-PDS suture in running fashion. All ports were closed with a subcuticular 4-0 monocryl and Dermabond. Sponge, instrument, and needle counts were correct at the end of the case x2. The patient tolerated the surgery well and without complication. He awoke without difficulty and was taken to the recovery room in stable condition
[2021-06-01] MEDS ORDERED: IOPAMIDOL-370 50ML BTL MISCELLANE ONE (12:39)
[2021-06-01] MEDS ORDERED: LACTATED RINGERS 1,000 ML IV ONE ×2 (12:59→14:12)
[2021-06-01 13:28] VITALS: TEMP 96.8
--- NOTE | 2021-06-01 13:36 | P.OP ---
Date of Procedure: 06/01/21 Preoperative Diagnosis: Right hydronephrosis, renal calculi Postoperative Diagnosis: Same Procedure(s) Performed: Cystoscopy, right retrograde pyelogram, ureteroscopy Implants: None Anesthesia: ЕЛЕНАA Surgeon: Dhruv Beckwith Estimated Blood Loss (ml): 5 Pathology: none sent Condition: stable Disposition: PACU Indications for Procedure: This is a 65 yo female with hx of horseshoe kidney and right sided hydronephrosis. She underwent Mag3 renogram which showed evidence of delayed drainage. Of note she also hx multiple right sided renal stone. Discussed with her the option of doing a RPG and possibile ureteroscopy to better define her ureteral anatomy. Discussed if there is evidence of stricture then we can do ureteral balloon dilation at the same setting. Discussed with her the success of endoscopy for UPJ obstruction is low, and if she does fail that the next step is to proceed with a pyeloplasty. Discussed with her pyeloplasty would be more complicated given her horseshoe kidney. Discussed with her we'll try to address her renal stones at the same setting. Discussed that the stones are in the lower pole, they may not be accessible ureteroscope. Discussed with her the risk which includes but not limited to bleeding, infection, injury to the ureter. She understood all the risk and agreed to proceed Operative Findings: Right-sided hydronephrosis, the proximal ureter is kinked right the UPJ, transmission of pulsation was seen at the proximal ureter. Severely dilated kidney, unable to visualize the stones in the lower pole Description of Procedure: Patient was brought to the operating room, general anesthesia was induced. She was prepped and draped in sterile fashion and placed in dorsal lithotomy position. Cystoscopy was performed which showed no abnormality within the bladder. Attention was then carried to the right ureteral orifice which was intubated with an open-ended catheter, retrograde pyelogram was performed which showed no filling defect along the course of the ureter, but there was tortuosity of the proximal ureter. There was severely dilated collecting system. Next a sensor wire was advanced through the catheter and the catheter was removed with the wire in place. After placing the wire the ureter was straightened up. Next a flexible ureteroscope was passed over the wire, I was able to navigate the ureteroscope through the proximal ureter and into the renal pelvis. On ureteroscopy there was no narrowing at the UPJ, but of note there was complete kinking of the ureter, and transmission of pulsation was seen, which was concerning for a crossing vessel. Renoscopy was performed which showed no abnormality within the kidney, but of note I was not able to visualize the lower calyx, thus the stones were not visualized. Repeat renoscopy showed no injury to the kidney, pullback ureteroscopy showed no injury to the ureter, but really demonstrated kinking UVJ. The bladder was emptied at the end of case. Patient tolerated the procedure well was taken to PACU in stable condition
[2021-06-01 14:00] LABS: Glucose,Whole Blood 167 mg/dL (75-99)
--- NOTE | 2021-06-01 14:10 | FL ---
Fluoroscopy HISTORY: Right-sided renal calculus 63 seconds fluoroscopy time supplied to the referring clinician. 8 intraoperative C-arm images docum ent the procedure. See dictated report from urology.
[2021-06-01 14:52] VITALS: RESP 20
[2021-06-01 15:09] VITALS: BP 109/62; PULSE 80
[2021-06-01] MEDS ORDERED: IBUPROFEN 200 MG TAB PO ONE (15:15)
== END 2021-06-01 15:40 | disposition home or self-care (01) ==
LOC: OR 09:13
PROVIDERS: ATTEND Urology
DX: N13.2 Hydronephrosis with renal and ureteral calculous obstruction (principal); Q63.1 Lobulated, fused and horseshoe kidney; E11.9 Type 2 diabetes mellitus without complications; M81.0 Age-related osteoporosis without current pathological fracture; F32.9 Major depressive disorder, single episode, unspecified; F41.9 Anxiety disorder, unspecified; Z79.899 Other long term (current) drug therapy; Z79.4 Long term (current) use of insulin; I10 Essential (primary) hypertension; E78.5 Hyperlipidemia, unspecified; Z91.041 Radiographic dye allergy status
CPT/HCPCS: 84132; 74420; 74018; 52005; C1758; C1769; J2250; J1200; J1100; J0690; J2405; J2001; J3010; J2370; J0330; J2704; Q9967

== ENCOUNTER → 2021-09-06 | Outpatient (CLI) | payer MEDICARE ==
--- NOTE | 2021-09-07 05:10 | MR ---
EXAMINATION TYPE: MR kidney wo/w con DATE OF EXAM: 09/06/2021 COMPARISON: CT scan 03/27/2021 HISTORY: Hydronephrosis, right kidney. History of kidney stones right side CONTRAST: Standard multiplanar, multisequence MRI departmental protocol images were obtained without contrast a nd with 5 mL intravenous Gadavist gadolinium contrast. Liver has normal size and contour. There is no evidence of a splenic mass. Stomach is intact. There i s fusion of the lower poles of both kidneys. There is intact: Bile duct. The bile ducts are not dilat ed. Gallbladder appears normal. There is dilated right renal pelvis. There are bilateral renal cortic al cysts that measure up to 2.5 cm. The ureters do not appear dilated. There is no evidence of adrenal mass. There is no evidence of pancreatic mass. The lumbar spine is intact. There is no significant compression deformity. There is no paraspinal mas s. There is no evidence of aortic aneurysm. There is no ascites. There is no sign of a pleural effusi on. IMPRESSION: There is horseshoe kidney. There is right-sided hydronephrosis without significant hydroureter. 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 Nature of the obstruction is not clear. No evidence of a solid renal mass. No dilated ducts.
== END | disposition home or self-care (01) ==
LOC: RADMRIMAIN 18:34
PROVIDERS: ATTEND Urology
DX: N13.30 Unspecified hydronephrosis (principal)
CPT/HCPCS: 74183; A9585

== ENCOUNTER → 2021-09-06 | Outpatient (CLI) | payer MEDICARE ==
[2021-09-06 08:58] LABS: Calcium 9.3 mg/dL (8.4-10.2)
[2021-09-06 09:02] LABS: Basophils # (A) 0.1 k/uL (0-0.2); Basophils % (A) 1 %; Eosinophils # (A) 0.3 k/uL (0-0.7); Eosinophils % (A) 4 %; HCT 39.1 % (34.0-46.0); HGB 12.2 gm/dL (11.4-16.0); Hypochromasia Slight; Lymphocytes # (A) 1.9 k/uL (1.0-4.8); Lymphocytes % (A) 20 %; MCH 31.9 pg (25.0-35.0); MCHC 31.1 g/dL (31.0-37.0); MCV 102.7 fL (80.0-100.0); Macrocytosis Slight; Mean Platelet Volume 7.6; Monocytes # (A) 0.6 k/uL (0-1.0); Monocytes % (A) 7 %; Neutrophils # (A) 6.2 k/uL (1.3-7.7); Neutrophils % (A) 67 %; Platelet Count 312 k/uL (150-450); RBC 3.81 m/uL (3.80-5.40); RDW 13.1 % (11.5-15.5); WBC 9.2 k/uL (3.8-10.6)
--- NOTE | 2021-09-06 09:14 | XR ---
EXAMINATION TYPE: XR chest 2V DATE OF EXAM: 09/06/2021 COMPARISON: NONE TECHNIQUE: PA and lateral views submitted. HISTORY: Presurgical testing FINDINGS: The lungs are clear and there is no pneumothorax, pleural effusion, or focal pneumonia. Curvature o f the spine noted. There is a calcified granuloma right lower lobe. Hyperinflation noted. Calcified l ymph nodes suspected left axilla. Diffuse osteopenia and chronic deformities of the humeral neck. Hyp ertrophic and degenerative changes of the spine. IMPRESSION: 1. COPD correlate for chronic interstitial lung disease. 2. Calcified granuloma right lower lobe..
[2021-09-06 09:17] LABS: Appearance,Urine Cloudy (Clear); Bilirubin,Urine Negative (Negative); Blood,Urine Negative (Negative); Color,Urine Yellow; Glucose,Urine (UA) 4+ (Negative); Hyaline Casts,Urine 1 /lpf (0-2); Ketones,Urine Negative (Negative); Leukocyte Esterase,Urine Moderate (Negative); Mucus,Urine Rare /hpf; Nitrite,Urine Negative (Negative); PH, Urine 5.5 (5.0-8.0); Protein,Urine Trace (Negative); RBC,Urine 1 /hpf (0-5); Specific Gravity,Urine 1.022 (1.001-1.035); Squamous Epithelial Cell,Urine 9 /hpf (0-4); Urobilinogen,Urine <2.0 mg/dL (<2.0); WBC,Urine 20 /hpf (0-5)
== END | disposition home or self-care (01) ==
LOC: LABPAT 07:21
PROVIDERS: ATTEND Urology
DX: Z01.812 Encounter for preprocedural laboratory examination (principal); N13.30 Unspecified hydronephrosis
CPT/HCPCS: 36415; 71046; 80048; 81001; 85025; 87086

== ENCOUNTER 2021-09-14 10:06 | Day surgery (SDC) | payer MEDICARE ==
[2021-09-11 13:35] VITALS: BMI 18.8
--- NOTE | 2021-09-14 03:48 | P.HPIHPCON ---
History of Present Illness H&P Date: 09/14/21 this is a 66yo male with hx of horsshoe kidney and right sided hydronephrosis. She underwent a Lasix renogram which was consistent with obstruction, She underwent right sided ureteroscopy on 05/2021 which confirmed this finding. Ureteroscopy at that time showed kinking right at the UPJ. Discussed with her option of robotic pyeloplasty. the risk which includes but not limited to bleeding, infection. Discussed risk of injury to the kidney, which could lead to a nephrectomy. Discussed the potential of recurrence of the obstruction. She understood all the risk and agreed to proceed Consent for Procedure: I have explained the operation/procedure to the patient, including the risks, benefits, side effects, alternative therapies (including not receiving the proposed treatment or service), the likelihood of the patient achieving his/her goals, and potential recuperation problems for the procedure/sedation/analgesia, as well as any blood products, if indicated. I also explained to the patient the risks, benefits and side effects of the alternatives, as well as the risks related to not receiving the proposed procedure, care, treatment, or services. - Constitutional Constitutional: Denies chills, Denies fever - Cardiovascular Cardiovascular: Denies chest pain, Denies shortness of breath - Respiratory Respiratory: Denies cough, Denies 7 - Gastrointestinal Gastrointestinal: Denies abdominal pain, Denies diarrhea, Denies nausea, Denies vomiting - Genitourinary (Female) Genitourinary: Denies dysuria, Denies hematuria Past Medical History Past Medical History: Diabetes Mellitus, Hypertension, Renal Disease Additional Past Medical History / Comment(s): kidney stones, osteoporosis, History of Any Multi-Drug Resistant Organisms: None Reported Past Surgical History: Joint Replacement, Orthopedic Surgery Additional Past Surgical History / Comment(s): LEFT WRIST ORIF, left hip replacement(surgery x 2 for fx), LITHOTRIPSY, PERCUTANIOUS KIDNEY STONE REMOVAL X2, Past Anesthesia/Blood Transfusion Reactions: No Reported Reaction Smoking Status: Current every day smoker - Past Family History Brother(s) Family Medical History: Cancer Additional Family Medical History / Comment(s): COLON Medications and Allergies Home Medications Medication Instructions Recorded Confirmed Type ALPRAZolam [Xanax] 1 mg PO BID PRN 08/09/16 09/11/21 History PARoxetine HCL [Paxil] 40 mg PO DAILY 08/09/16 09/11/21 History Benazepril HCl [Lotensin] 20 mg PO QAM 02/07/17 09/11/21 History Acetaminophen Tab [Tylenol Tab] 500 - 1,000 mg PO BID PRN 02/08/17 09/11/21 History Atorvastatin [Lipitor] 20 mg PO DAILY 05/29/21 09/11/21 History Carboxymethylcellulose Sodium 1 drop LEFT EYE BID 05/29/21 09/11/21 History [Refresh Tears] Dapagliflozin Propanediol [Farxiga] 5 mg PO DAILY 05/29/21 09/11/21 History Insulin Glargine,Hum.rec.anlog 10 unit SQ QAM 05/29/21 09/11/21 History [Lantus Solostar Pen] Pioglitazone HCl 30 mg PO DAILY 05/29/21 09/11/21 History Vit C/E/Zn/Coppr/Lutein/Zeaxan 1 each PO DAILY 05/29/21 09/11/21 History [Preservision Areds 2 Softgel] amLODIPine BESYLATE 10 mg PO DAILY 05/29/21 09/11/21 History metFORMIN HCL [Glucophage] 1,000 mg PO BID-W/MEALS 05/29/21 09/11/21 History Allergies Allergy/AdvReac Type Severity Reaction Status Date / Time Iodinated Contrast Media Allergy Unknown Verified 09/11/21 13:23 ivp dye AdvReac Mild Unknown Uncoded 09/11/21 13:23 Surgical - Exam - General no distress, no pain - Respiratory normal expansion, normal respiratory effort - Abdomen Abdomen: soft, non tender - Psychiatric oriented to time, oriented to person, oriented to place, speech is normal Assessment and Plan Assessment: OR for right sided robotic pyeloplasty
[~2021-09-14 10:06] MED LIST changes: -HYDROmorphone 0.5 MG/0.5 ML SYRINGE IVP PRN; -LACTATED RINGERS 1,000 ML IV SCH; -fentaNYL (PF) 50 MCG/ML 2 ML AMP IV PRN
[2021-09-14 11:37] LABS: Glucose,Whole Blood 108 mg/dL (75-99)
[2021-09-14] MEDS ORDERED: LACTATED RINGERS 1,000 ML IV ONE ×3 (11:40→13:56)
[2021-09-14] MEDS ORDERED: HEPARIN SODIUM,PORCINE/PF 5,000 UNIT/0.5 ML SYRINGE SQ ONE (12:03)
[2021-09-14] MEDS ORDERED: PROPOFOL 10 MG/ML 20 ML VIAL IV ONE (12:28)
[2021-09-14] MEDS ORDERED: PHENYLEPHRINE-0.9% NACL SYG 1,000 MCG/10 ML SYRINGE ONE (12:28)
[2021-09-14] MEDS ORDERED: KETAMINE 10 MG/ML 20 ML VIAL ONE (12:28)
[2021-09-14] MEDS ORDERED: NEOSTIGMINE 1 MG/ML 10 ML VIAL ONE (12:28)
[2021-09-14] MEDS ORDERED: .fentaNYL (PF) 50 MCG/ML 2 ML AMP ONE (12:28)
[2021-09-14] MEDS ORDERED: GLYCOPYRROLATE 0.2 MG/ML 2 ML VIAL ONE (12:28)
[2021-09-14] MEDS ORDERED: SUCCINYLCHOLINE CHLORIDE 100 MG/5 ML SYR IV ONE (12:28)
[2021-09-14] MEDS ORDERED: ROCURONIUM 10 MG/ML (5 ML VIAL) IV ONE (12:28)
[2021-09-14] MEDS ORDERED: ePHEDrine 50 MG/ML 1 ML AMP ONE (12:28)
[2021-09-14] MEDS ORDERED: LIDOCAINE 1% INJ 10MG/ML (20 ML MDV) ONE (12:28)
[2021-09-14] MEDS ORDERED: MIDAZOLAM 2 MG/2 ML VIAL ONE (12:28)
[2021-09-14] MEDS ORDERED: BUPIVACAINE (PF) 0.5% 30 ML VIAL SQ ONE ×2 (13:09→14:54)
--- NOTE | 2021-09-14 15:07 | P.OP ---
Date of Procedure: 09/14/21 Preoperative Diagnosis: right sided hydronephrosis Postoperative Diagnosis: same Procedure(s) Performed: Robotic-assisted right-sided pyeloplasty, and stent insertion Implants: 6 Fr x 24 cm stent in the right ureter Anesthesia: DAVE Surgeon: Dhruv Beckwith Quantitative Manager #1: Charlene Knapp Estimated Blood Loss (ml): 50 Pathology: other (UPJ) Condition: stable Disposition: PACU Indications for Procedure: this is a 66yo male with hx of horsshoe kidney and right sided hydronephrosis. She underwent a Lasix renogram which was consistent with obstruction, She underwent right sided ureteroscopy on 05/2021 which confirmed this finding. Ureteroscopy at that time showed kinking right at the UPJ. Discussed with her option of robotic pyeloplasty. the risk which includes but not limited to bleeding, infection. Discussed risk of injury to the kidney, which could lead to a nephrectomy. Discussed the potential of recurrence of the obstruction. She understood all the risk and agreed to proceed Operative Findings: High insertion of the ureter into the renal pelvis Description of Procedure: The patient was taken to the operating room . General anesthesia was induced. She was prepped and draped in sterile fashion, she was placed in modified flank position . All pressure points were padded. The abdominal insufflation was achieved with the Veress needle. A 8 mm camera port was placed. Robotic trocars and application assistant ports were placed under direct vision. A 5 mm port was placed in the upper quadrant for the liver retractor. The liver was retracted using the liver retractor. The robot was docked into place. The colon was mobilized medially by incising along the white line of Toldt. Next the duodenum was kocherized.. At this point the ureter was visualized. The ureter was dissected up into the renal pelvis. Of note the ureter was high inserting, there was no evidence of crossing vessel. The renal pelvis was dilated significantly. Next the incision was made in the renal pelvis, the ureteropelvic junction was dismembered. Of note given the horseshoe kidney, there were multiple calyces anteriorly, which limited to inability to extend the incision within the renal pelvis. Next, the ureteropelvic junction was excised and sent to pathology. The ureter was spatulated. The anastomosis was performed using two 4-0 V-lock in running fashion. Prior to completing the anastomosis a sensor wire was advanced through an Angiocath in the left upper quadrant. The sensor wire was advanced into the bladder. Next a ureteral stent was passed over the wire. The stent used was 6-Wallisian by 24 cm stent. After placing the stent the anastomosis was completed. Next a 10-Wallisian ADRI was placed through the left lower quadrant. At this time the robot was undocked. The application assistant port incision was closed using 0 Vicryl using the Adrian Tanner. All skin incisions were closed with 4-0 Monocryl and skin glue. Patient tolerated the procedure well was taken to recovery in stable condition
[2021-09-14] MEDS ORDERED: HYDROmorphone 1 MG/ML 1 ML SYRINGE IVP PRN (15:08)
[2021-09-14] MEDS ORDERED: ALPRAZolam 1 MG TAB PO PRN (15:09)
[2021-09-14] MEDS: HYDROmorphone 0.5 MG/0.5 ML SYRINGE IVP PRN ×3 (15:30→16:30)
[2021-09-14] MEDS: KETOROLAC 30 MG/ML 1 ML VIAL IVP PRN ×2 (15:33→20:21)
[2021-09-14] MEDS ORDERED: SODIUM CHLORIDE 0.9% 1,000 ML IV ONE (16:19)
[2021-09-14 18:15] LABS: Glucose,Whole Blood 146 mg/dL (75-99)
[2021-09-14] MEDS ORDERED: ACETAMINOPHEN IV (For NPO) 1,000 MG/100 ML VIAL IVPB ONE (18:18)
[2021-09-14] MEDS: SODIUM CHLORIDE 0.9% 1,000 ML IV SCH (23:06)
[2021-09-14] MEDS: LACTATED RINGERS 1,000 ML IV SCH (23:06)
[2021-09-14] MEDS: metFORMIN 500 MG TAB PO SCH (23:08)
[2021-09-15] MEDS: HEPARIN SODIUM,PORCINE/PF 5,000 UNIT/0.5 ML SYRINGE SQ SCH ×2 (01:08→07:44)
[2021-09-15] MEDS: SODIUM CHLORIDE 0.9% 1,000 ML IV SCH (05:40)
[2021-09-15] MEDS: KETOROLAC 30 MG/ML 1 ML VIAL IVP PRN ×2 (06:03→14:33)
[2021-09-15 07:02] LABS: Glucose,Whole Blood 109 mg/dL (75-99)
[2021-09-15] MEDS: INSULIN ASPART (NovoLOG) 100 UNIT/ML VIAL SQ SCH ×2 (07:24→11:57)
[2021-09-15] MEDS: LACTATED RINGERS 1,000 ML IV SCH (07:45)
[2021-09-15] MEDS: metFORMIN 500 MG TAB PO SCH (07:45)
[2021-09-15 08:05] VITALS: RESP 16
[2021-09-15 08:28] VITALS: BP 120/71; PULSE 96; TEMP 99.3
[2021-09-15] MEDS ORDERED: amLODIPine 10 MG TAB PO SCH (09:00)
[2021-09-15] MEDS ORDERED: PARoxetine 20 MG TAB PO SCH (09:00)
[2021-09-15] MEDS ORDERED: ATORVASTATIN 20 MG TAB PO SCH (09:00)
[2021-09-15] MEDS ORDERED: INSULIN DETEMIR (LEVEMIR) 100 UNIT/ML SYR SQ SCH (09:00)
[2021-09-15] MEDS ORDERED: PIOGLITAZONE 30 MG TAB PO SCH (09:00)
[2021-09-15] MEDS ORDERED: lisinopriL 20 MG TAB PO SCH (09:00)
[2021-09-15 11:49] LABS: Glucose,Whole Blood 128 mg/dL (75-99)
--- NOTE | 2021-09-15 19:24 | P.DS ---
Providers Attending physician: Dhruv Beckwith MD Primary care physician: [facility] Course: this is a 66-year-old female history of right-sided UPJ obstruction, and horseshoe kidney. She underwent a robotic right-sided pyeloplasty on September 14, please see op note dated September 14 for surgery detail. She was admitted to the hospital postoperatively, did well in the postoperative period. Jefferson was removed on postoperative day #1, there was no increased output from the ADRI, the ADRI was also removed on postoperative day #1J. She was discharged home on postoperative day #1 she will follow up in 4 weeks for stent removal. At time of discharge she was tolerating a diet, ambulating, pain was well-controll Plan - Discharge Summary Discharge Rx Participant: No New Discharge Prescriptions: New traMADol HCL [Ultram] 50 mg PO Q6HR PRN 3 Days #12 tab PRN Reason: Pain No Action ALPRAZolam [Xanax] 1 mg PO BID PRN PRN Reason: Anxiety PARoxetine HCL [Paxil] 40 mg PO DAILY Benazepril HCl [Lotensin] 20 mg PO QAM Acetaminophen Tab [Tylenol Tab] 500 - 1,000 mg PO BID PRN PRN Reason: Pain Insulin Glargine,Hum.rec.anlog [Lantus Solostar Pen] 10 unit SQ QAM Atorvastatin [Lipitor] 20 mg PO DAILY metFORMIN HCL [Glucophage] 1,000 mg PO BID-W/MEALS Pioglitazone HCl 30 mg PO DAILY Cephalexin [Keflex] 500 mg PO Q12HR amLODIPine BESYLATE 10 mg PO DAILY Vit C/E/Zn/Coppr/Lutein/Zeaxan [Preservision Areds 2 Softgel] 1 each PO DAILY Carboxymethylcellulose Sodium [Refresh Tears] 1 drop LEFT EYE BID Discharge Medication List ALPRAZolam [Xanax] 1 mg PO BID PRN 08/09/16 [History] PARoxetine HCL [Paxil] 40 mg PO DAILY 08/09/16 [History] Benazepril HCl [Lotensin] 20 mg PO QAM 02/07/17 [History] Acetaminophen Tab [Tylenol Tab] 500 - 1,000 mg PO BID PRN 02/08/17 [History] Atorvastatin [Lipitor] 20 mg PO DAILY 05/29/21 [History] Carboxymethylcellulose Sodium [Refresh Tears] 1 drop LEFT EYE BID 05/29/21 [History] Insulin Glargine,Hum.rec.anlog [Lantus Solostar Pen] 10 unit SQ QAM 05/29/21 [History] Pioglitazone HCl 30 mg PO DAILY 05/29/21 [History] Vit C/E/Zn/Coppr/Lutein/Zeaxan [Preservision Areds 2 Softgel] 1 each PO DAILY 05/29/21 [History] amLODIPine BESYLATE 10 mg PO DAILY 05/29/21 [History] metFORMIN HCL [Glucophage] 1,000 mg PO BID-W/MEALS 05/29/21 [History] Cephalexin [Keflex] 500 mg PO Q12HR 09/14/21 [History] traMADol HCL [Ultram] 50 mg PO Q6HR PRN 3 Days #12 tab 09/15/21 [Rx] Patient Instructions/Handouts: Ureteral Stent Placement (DC) Activity/Diet/Wound Care/Special Instructions: Increase fluid intake No heavy lifting or straining for 4 weeks It's normal to see blood in the urine You may shower, no baths Discharge Disposition: HOME SELF-CARE
== END 2021-09-15 16:15 | disposition home or self-care (01) ==
LOC: OR 10:06 → 4SSUR 14:55 → OR 09-15 16:15
PROVIDERS: ATTEND Urology
DX: N13.30 Unspecified hydronephrosis (principal); Z20.822 Contact with and (suspected) exposure to COVID-19
CPT/HCPCS: 50400; 86900; 86901; 86850; 87635; C2625; C1769; J2250; J1100; J2710; J0690 ×2; J2405; J2001; J3010; J1885 ×2; J1170 ×2; J0131; J2370; J0330; J2704; J1644 ×2; 88305

== ENCOUNTER → 2022-01-09 | Outpatient (CLI) | payer MEDICARE ==
[~2022-01-09] MED LIST changes: -DEXAMETHASONE SOD PHOSPHATE 4 MG/ML 1 ML VIAL IV ONE; +FUROSEMIDE 10 MG/ML 2 ML VIAL IV ONE; -LIDOCAINE 1% (10MG/ML) FOR IV START INTRADERMA PRN; -MIDAZOLAM 2 MG/2 ML VIAL IV PRN; -ONDANSETRON 4 MG/2 ML VIAL IVP ONE
--- NOTE | 2022-01-09 14:43 | NM ---
EXAMINATION TYPE: NM lasix renogram DATE OF EXAM: 01/09/2022 COMPARISON: NONE HISTORY: Hydronephrosis, right kidney Following administration of 9.9 mCi Tc 99m MAG3 with 20mg Lasix. Immediate images post injection FINDINGS: Left: 25.7 %. Right: 74.3 %. Max renal flow left: 14 minutes. Max renal flow right: 74.3 minutes. Satisfactory accumulation of radiotracer within both renal collecting systems. After the administrati on of Lasix, there is blunted excretion from the left collecting system. Fairly prompt excretion note d on the right. Static images demonstrate findings are suggestive of right-sided hydronephrosis. This corresponds the previous MRI. T 1/2 left: NA minutes. T 1/2 right: NA minutes. IMPRESSION: 1. Findings suggestive of right hydronephrosis. 2. Abnormal split renal function as measured above. Additionally, see asymmetric renal flow above. 3. Findings are suggestive of horseshoe kidney
== END | disposition home or self-care (01) ==
LOC: RADNMMAIN 12:54
PROVIDERS: ATTEND Urology
DX: N13.30 Unspecified hydronephrosis (principal)
CPT/HCPCS: 78708; A9562

== ENCOUNTER → 2022-04-26 | Outpatient (CLI) | payer MEDICARE ==
--- NOTE | 2022-04-26 08:18 | XR ---
EXAMINATION TYPE: XR pelvis AP view DATE OF EXAM: 04/26/2022 COMPARISON: NONE HISTORY: Pain No acute fracture is seen. Visualized bowel gas pattern is nonspecific. Postsurgical change involvi ng the left hip. Diffuse osteopenia. Evidence of previous trauma involving the pelvis. SI joint arthr opathy and degenerative change lower lumbar spine. Arthropathy of the right hip. IMPRESSION: 1. No acute fracture. Postsurgical change of the left hip and evidence of arthropathy of the right hi p. 2. Extensive remote previous fractures involving the pubic rami. 3. Degenerative change lower lumbar spine and SI joint arthropathy.
--- NOTE | 2022-04-26 08:21 | XR ---
EXAM TYPE: LUMBAR SPINE X RAY SERIES COMPARISON: NONE HISTORY: Pain TECHNIQUE: 4 views are submitted. FINDINGS: Alignment is anatomic. The pedicles are intact. The transverse processes are intact. There is diff use osteopenia with severe degenerative disc disease at levels L2-S1. Severe facet arthropathy involv ing the lower lumbar spine with multilevel foraminal encroachment suspected. Grade 1 anterolisthesis L5 on S1. Hypertrophic spurring at both levels with scoliotic curvature. There is a 4 mm calcification adjacent to L5 on the left which could be in the course of the left ure ter. SI joint arthropathy noted. IMPRESSION: 1. Severe multilevel degenerative disc disease, facet arthropathy and suspected multilevel foraminal encroachment with grade 1 anterolisthesis L5 on S1. 2. Calcification seen along the left paraspinal line nearly L5-S1 level was previously seen in the le ft upper quadrant may represent a ureteral calculus recommend correlation with noncontrast CT abdomen and pelvis.
== END | disposition home or self-care (01) ==
LOC: RADXRMAIN 06:57
PROVIDERS: ATTEND Family Medicine
DX: M47.896 Other spondylosis, lumbar region (principal); M25.552 Pain in left hip
CPT/HCPCS: 72110; 72170

== ENCOUNTER → 2022-05-10 | Outpatient (CLI) | payer MEDICARE ==
--- NOTE | 2022-05-10 09:27 | CT ---
EXAMINATION TYPE: CT abdomen pelvis wo con CT DLP: 280.3 mGycm, Automated exposure control for dose reduction was used. DATE OF EXAM: 05/10/2022 9:16 AM COMPARISON: MR kidney 09/06/2021. CLINICAL INDICATION:Female, 66 years old with history of N20.1 CALCULUS OF URETER; TECHNIQUE: Axial CT of the abdomen and pelvis. Sagittal and coronal reformats were created on a [employer] workstation. Contrast used: None Oral contrast used: without Oral Contrast FINDINGS: LOWER CHEST: Subcutaneous cyst seen measuring up to 14 mm in the left pleural chest. Additional more inferior and medial one measuring 6 mm is present. ABDOMEN LIVER: Unremarkable GALLBLADDER AND BILE DUCTS: Unremarkable. PANCREAS: Unremarkable. SPLEEN: Unremarkable. ADRENAL GLANDS: Unremarkable. KIDNEYS AND URETERS: Nonobstructing bilateral renal calculi measuring up to 8 mm on the right and mil limeters on the left. Overall there is no evidence for hydronephrosis there is a horseshoe type kidne y is noted. Visualization of the ureters is slightly limited given patient's horseshoe kidney and the orientation of the kidneys. PELVIS BLADDER: Unremarkable REPRODUCTIVE: Unremarkable. ABDOMEN & PELVIS STOMACH AND BOWEL: No evidence of bowel obstruction or scattered diverticula are present throughout t he visualized colon. PERITONEUM: No evidence of pneumoperitoneum or free fluid. VASCULATURE: Mild atherosclerotic calcifications are present throughout the abdominal aorta and its b ranches. No evidence of aortic aneurysm. MUSCULOSKELETAL: No acute osseous abnormalities, left hip prosthesis with are intact. Multilevel disc degeneration changes are present throughout the spine. There is mild scoliosis changes. 1 anterolist hesis of L4 and L5 with pars interarticularis defects. There is multilevel facet joint arthropathy pr esent. Old fractures of the bilateral superior and inferior pubic rami are noted. LYMPH NODES: No gross evidence for lymphadenopathy. SOFT TISSUE/ABDOMINAL WALL: Unremarkable IMPRESSION: 1. 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 No definitive evidence for hydroneph rosis. 2. Probable sebaceous cysts in the left lower chest wall.
== END | disposition home or self-care (01) ==
LOC: RADCTMAIN 08:49
PROVIDERS: ATTEND Family Medicine
DX: N20.1 Calculus of ureter (principal)
CPT/HCPCS: 74176

== ENCOUNTER → 2022-05-31 | Outpatient (CLI) | payer MEDICARE ==
--- NOTE | 2022-05-31 19:11 | MR ---
EXAMINATION TYPE: MR lumbar spine wo con DATE OF EXAM: 05/31/2022 2:05 PM COMPARISON: MR lumbar spine 09/15/2015. CLINICAL INDICATION:Female, 66 years old with history of M46.06 LUMBAR PAIN; TECHNIQUE: Multi planar, multi sequence imaging was performed utilizing: T1-weighted, T2-weighted, a nd turbo inversion recovery imaging of the lumbar spine. IV Contrast: None FINDINGS: Alignment: The lumbar vertebral bodies have preserved heights. There is grade 1 anterolisthesis of L5 on S1. Cord: The conus medullaris and the distal spinal cord appear unremarkable with regards to their signa l intensity and morphology. Bones/Discs: Bone signal is within normal limits. Multilevel degenerative disc disease is noted most proximal at T12-L1 and loss of disc height. T11-T12: Disc bulge results in narrowing ventral subarachnoid space, facet joint arthropathy result i n moderate to severe bilateral neural foraminal stenosis. T12-L1: Disc bulge with facet joint arthropathy result in narrowing of the ventral subarachnoid space and moderate bilateral neural foraminal stenosis. L1-L2: Disc bulge with facet joint arthropathy result in narrowing of the ventral subarachnoid space and moderate bilateral neural foraminal stenosis. L2-L3: Disc bulge with facet joint arthropathy result in narrowing of the ventral subarachnoid space and moderate bilateral neural foraminal stenosis. L3-L4: Disc bulge with facet joint arthropathy result in mild spinal canal stenosis and moderate bila teral neural foraminal stenosis. L4-L5: Disc bulge with facet joint arthropathy result in moderate spinal canal stenosis and moderate to severe bilateral neural foraminal stenosis. L5-S1: Disc uncovering with bulging at this level results in mild spinal canal stenosis. Facet joint arthropathy results in moderate to severe right neural foraminal stenosis and moderate left. Other findings: None. IMPRESSION: 1. Moderate multilevel disc degeneration with associated osteoarthritic change with moderate to heidi re multilevel neural foraminal stenosis scattered throughout the spine as described above. Overall fi ndings minimally progressed from prior in 2015. 2. No definitive evidence of disc herniation or significant spinal canal stenosis.
== END | disposition home or self-care (01) ==
LOC: RADMRIMAIN 12:49
PROVIDERS: ATTEND Nurse Practitioner Family
DX: M43.06 Spondylolysis, lumbar region (principal)
CPT/HCPCS: 72148

== ENCOUNTER 2022-08-27 08:41 | Emergency (ER) | payer MEDICARE ==
[2022-08-27 08:46] VITALS: RESP 16; TEMP 98.5
[2022-08-27] MEDS ORDERED: HYDROcodone/APAP 5-325MG 1 EACH TAB PO STA (08:55)
--- NOTE | 2022-08-27 08:59 | ED ---
Fall HPI - General Chief Complaint: Fall Stated Complaint: Fall, Rt. Hip Pain Time Seen by Provider: 08/27/22 08:42 Source: patient, RN notes reviewed Mode of arrival: wheelchair - History of Present Illness Initial Comments: Patient is a 67 year old female presenting to the ER with a chief complaint of right hip pain. Patient states she was taking her trash out this morning and she slipped and fell landing on her right hip. She locates most of her pain in her anterior groin. Patient also endorses right ankle pain stating he inverted it during the fall. She denies LOC. Denies blood thinner use. Patient states while walking exacerbates her pain. She has not taken anything for pain. Patient rates her ankle pain 8/10 and hip pain 10/10 currently. - Related Data Home Medications Medication Instructions Recorded Confirmed ALPRAZolam [Xanax] 1 mg PO BID PRN 08/09/16 09/11/21 PARoxetine HCL [Paxil] 40 mg PO DAILY 08/09/16 09/11/21 Benazepril HCl [Lotensin] 20 mg PO QAM 02/07/17 09/11/21 Acetaminophen Tab [Tylenol Tab] 500 - 1,000 mg PO BID PRN 02/08/17 09/11/21 Atorvastatin [Lipitor] 20 mg PO DAILY 05/29/21 09/11/21 Carboxymethylcellulose Sodium 1 drop LEFT EYE BID 05/29/21 09/11/21 [Refresh Tears] Insulin Glargine,Hum.rec.anlog 10 unit SQ QAM 05/29/21 09/11/21 [Lantus Solostar Pen] Pioglitazone HCl 30 mg PO DAILY 05/29/21 09/11/21 Vit C/E/Zn/Coppr/Lutein/Zeaxan 1 each PO DAILY 05/29/21 09/11/21 [Preservision Areds 2 Softgel] amLODIPine BESYLATE 10 mg PO DAILY 05/29/21 09/11/21 metFORMIN HCL [Glucophage] 1,000 mg PO BID-W/MEALS 05/29/21 09/11/21 Cephalexin [Keflex] 500 mg PO Q12HR 09/14/21 09/14/21 Previous Rx's Medication Instructions Recorded traMADol HCL [Ultram] 50 mg PO Q6HR PRN 3 Days #12 tab 09/15/21 Allergies Allergy/AdvReac Type Severity Reaction Status Date / Time Iodinated Contrast Media Allergy Unknown Verified 08/27/22 08:44 ivp dye AdvReac Mild Unknown Uncoded 08/27/22 08:44 Review of Systems ROS Statement: Those systems with pertinent positive or pertinent negative responses have been documented in the HPI. ROS Other: All systems not noted in ROS Statement are negative. Past Medical History Past Medical History: Diabetes Mellitus, Hypertension, Renal Disease Additional Past Medical History / Comment(s): kidney stones, osteoporosis History of Any Multi-Drug Resistant Organisms: None Reported Past Surgical History: Joint Replacement, Orthopedic Surgery Additional Past Surgical History / Comment(s): LEFT WRIST, left hip REPLACED, LITHOTRIPSY, PERCUTANIOUS KIDNEY STONE REMOVAL X2 Past Anesthesia/Blood Transfusion Reactions: No Reported Reaction Past Psychological History: Anxiety, Depression Smoking Status: Current every day smoker Past Alcohol Use History: Rare Past Drug Use History: None Reported - Past Family History Brother(s) Family Medical History: Cancer Additional Family Medical History / Comment(s): COLON General Exam Limitations: no limitations General appearance: alert, in no apparent distress Head exam: Present: atraumatic, normocephalic, normal inspection Eye exam: Present: normal appearance, PERRL, EOMI. Absent: scleral icterus, conjunctival injection, periorbital swelling ENT exam: Present: normal exam, mucous membranes moist Neck exam: Present: normal inspection. Absent: tenderness, meningismus, lymphadenopathy Respiratory exam: Present: normal lung sounds bilaterally. Absent: respiratory distress, wheezes, rales, rhonchi, stridor Cardiovascular Exam: Present: regular rate, normal rhythm, normal heart sounds, other (2+ right dorsalis pedis and posterior tibialis pulse). Absent: systolic murmur, diastolic murmur, rubs, gallop, clicks GI/Abdominal exam: Present: soft, normal bowel sounds. Absent: distended, tenderness, guarding, rebound, rigid Extremities exam: Present: normal inspection, full ROM, tenderness (right mid foot and along fifth metatarsal ) Back exam: Present: normal inspection Neurological exam: Present: alert, oriented X3, CN II-XII intact Psychiatric exam: Present: normal affect, normal mood Skin exam: Present: warm, dry, intact, normal color. Absent: rash Course Vital Signs 08/27/22 08:44 Temperature 98.5 F Pulse Rate 94 Respiratory 16 Rate Blood Pressure 126/56 O2 Sat by Pulse 100 Oximetry Medical Decision Making - Medical Decision Making 67-year-old female presented for a fall. X-rays read by me and radiologist showed possibility of pelvic fracture. CT was obtained showing old fracture no acute fracture. Patient will be discharged in stable condition with follow-up return parameters were discussed. Disposition Clinical Impression: Fall, Contusion, hip, Ankle sprain Disposition: HOME SELF-CARE Condition: Stable Instructions (If sedation given, give patient instructions): Hip Contusion (ED) Additional Instructions: Please return to the Emergency Department if symptoms worsen or any other concerns. Is patient prescribed a controlled substance at d/c from ED?: No Referrals: Cesar Sylvester DO [Primary Care Provider] - 1-2 days Time of Disposition: 11:42
--- NOTE | 2022-08-27 10:30 | XR ---
EXAMINATION TYPE: XR ankle complete RT DATE OF EXAM: 08/27/2022 COMPARISON: 07/23/2017 HISTORY: Pain, fall TECHNIQUE: 3 view right ankle FINDINGS: Ankle mortise is intact. No acute fracture or dislocation is evident. The soft tissues appe ar normal. Large plantar calcaneal heel spur is noted. Follow up exams can be performed 7-10 days acute trauma for continued pain. IMPRESSION: 1. No suspicious acute osseous abnormality right ankle. 2. Plantar calcaneal heel spur.
--- NOTE | 2022-08-27 10:35 | XR ---
EXAMINATION TYPE: XR pelvis AP view DATE OF EXAM: 08/27/2022 CLINICAL HISTORY: Pain. Recent fall injury. TECHNIQUE: A single AP view of the pelvis is obtained. COMPARISON: Pelvic x-ray April 18, 2022. FINDINGS: There is no acute fracture/dislocation evident in the pelvis. Metallic hardware from left hip surgery is partially imaged similar to prior. Old healed fractures of the superior an inferior pe lvic rami bilaterally are redemonstrated. Sacroiliac joints are preserved. Pubic symphysis is intact. IMPRESSION: There is no acute displaced fracture in the pelvis.
--- NOTE | 2022-08-27 10:39 | XR ---
EXAMINATION TYPE: XR Hip Complete RT DATE OF EXAM: 08/27/2022 COMPARISON: None HISTORY: Pain from fall TECHNIQUE: 2 view right hip FINDINGS: Femoral head articulates with the acetabulum. Joint space appears preserved. Follow up exam s can be performed 7-10 days from acute trauma for continued pain. Fracture of the ischio ramus is evident on the accompanying pelvic film. On the hip films this is les s evident. IMPRESSION: 1. No acute fracture within the left femur on the two-view hip images. 2. Suspected fracture right ischio ramus.
--- NOTE | 2022-08-27 11:48 | CT ---
EXAMINATION TYPE: CT pelvis wo con DATE OF EXAM: 08/27/2022 COMPARISON: Pelvic x-ray earlier today. CT abdomen and pelvis May 10, 2022 HISTORY: Pain after fall injury CT DLP: 243 mGycm Automated exposure control for dose reduction was used. FINDINGS: Old healed fractures of the superior and inferior pelvic rami bilaterally are redemonstrated. There i s no linear lucency to suggest acute fracture in the pelvis or right hip. Metallic hardware from left hip arthroplasty is partially imaged. Sacroiliac joints are maintained. Pubic symphysis remains inta ct. Persistent horseshoe type kidney with bilateral nephrolithiasis. Sigmoid colonic diverticulosis redem onstrated. No pelvic fluid collection noted. IMPRESSION: No acute fracture or dislocation in the pelvis or right hip.
[2022-08-27] MEDS ORDERED: ACET/COD 300 MG/30 MG STARTER PACK 6 TAB BTL PO STA (11:56)
[2022-08-27 12:22] VITALS: BP 115/55; PULSE 80
== END 2022-08-27 12:22 | disposition home or self-care (01) ==
LOC: EC 08:41
DX: S93.401A Sprain of unspecified ligament of right ankle, initial encounter (principal); S70.01XA Contusion of right hip, initial encounter; Z91.041 Radiographic dye allergy status; E11.9 Type 2 diabetes mellitus without complications; I10 Essential (primary) hypertension; Z96.642 Presence of left artificial hip joint; Z79.84 Long term (current) use of oral hypoglycemic drugs; Z79.899 Other long term (current) drug therapy; Z79.4 Long term (current) use of insulin; W01.0XXA Fall on same level from slipping, tripping and stumbling without subsequent striking against object, initial encounter; Y92.89 Other specified places as the place of occurrence of the external cause
CPT/HCPCS: 72170; 72192; 73502; 99284

== ENCOUNTER → 2023-01-31 | Outpatient (CLI) | payer MEDICARE ==
--- NOTE | 2023-01-31 15:11 | NM ---
EXAMINATION TYPE: NM lasix renogram DATE OF EXAM: 01/31/2023 COMPARISON: 01/09/2022 CLINICAL INDICATION: Female, 67 years old with history of RENOGRAM; Following administration of 10.54 mCi Tc 99m MAG3 with 20mg Lasix. Immediate images post injection FINDINGS: Left: 24.5 %. Right: 75.5 %. Max renal flow left: 17 minutes. Max renal flow right: 15.5 minutes. Satisfactory accumulation of radiotracer within both renal collecting systems. After the administrati on of Lasix, there is prompt excretion from the right collecting system. The left collecting system d emonstrates reduced uptake and excretion. T 1/2 left: NA minutes. T 1/2 right: NA minutes. IMPRESSION: Slight 1. Abnormal split renal function of the left kidney with reduced radiotracer uptake and excretion. Co rrelate for left-sided hydronephrosis or impaired renal function.
== END | disposition home or self-care (01) ==
LOC: RADNMMAIN 12:45
PROVIDERS: ATTEND Urology
DX: N13.30 Unspecified hydronephrosis (principal); R94.4 Abnormal results of kidney function studies
CPT/HCPCS: 78708; A9562

== ENCOUNTER → 2023-04-11 | Outpatient (CLI) | payer MEDICARE ==
--- NOTE | 2023-04-12 11:11 | BD ---
EXAMINATION TYPE: Axial Bone Density DATE OF EXAM: 04/11/2023 CLINICAL HISTORY: 67 years old Female. ICD-10 CODE: M89.9 DISORDER OF BONE Height: 60 Weight: 110 FRAX RISK QUESTIONS: Alcohol (3 or more units per day): no Family History (Parent hip fracture): yes Glucocorticoids (More than 3mos): no (Ex: prednisone, prednisolone, methylprednisolone, dexamethasone, and hydrocortisone). History of Fracture in Adulthood: yes Secondary Osteoporosis: 1. Type 1 Diabetes: no 2. Hyperthyroidism: no 3. Menopause before 45: no 4. Malnutrition: no 5. Chronic liver disease: no Rheumatoid Arthritis: no Current Tobacco Use: yes RISK FACTORS HISTORY OF: Hip Fracture (Right/Left): yes left Surgery to Spine/Hip(right/left)/Wrist (right/left): left hip Family History of Osteoporosis: yes Active: yes Diet low in dairy products/other sources of calcium: yes Postmenopausal woman: yes Lost more than 2 inches in height since high school: no MEDICATIONS: Additional History: EXAM MEASUREMENTS: Bone mineral densitometry was performed using the [employer] System. Bone mineral density as measured about the Lumbar spine is: ----- L1-L4(G/cm2): 1.091 T Score Values are as follows: ----- L1: 0.5 ----- L2: -1.5 ----- L3: -1.2 ----- L4: -0.7 ----- L1-L4: -0.7 Z Score Values are as follows: ----- L1: 25 ----- L2: 0.6 ----- L3: 0.8 ----- L4: 1.4 ----- L1-L4: 1.3 Bone mineral density has: decreased -8.0 % since study of: 10.10.2020 Bone mineral density about the R hip (g/cm2): 0.517 T Score values are as follows: -----R Neck: -3.6 -----R Total: -3.9 Z Score values are as follows: -----R Neck: -1.7 -----R Total: -2.2 Bone mineral density has: decreased -17.9 % since study of: 10.10.2020 FRAX%s: The graph provided illustrates a 58.8% chance for a major osteoporotic fx and a 39.7% chance for the hips probability for fx in 10 years time. IMPRESSION: Osteoporosis (T Score less than -2.5). There is increased fracture risk and therapy is usually indicated based on age. Re-Screen 1-2 years. NOTE: T-SCORE=SD OF THE YOUNG ADULT MEAN.
== END | disposition home or self-care (01) ==
LOC: RADBDWWP 14:36
PROVIDERS: ATTEND Family Medicine
DX: M85.89 Other specified disorders of bone density and structure, multiple sites (principal); F17.210 Nicotine dependence, cigarettes, uncomplicated
CPT/HCPCS: 77080

== ENCOUNTER 2023-04-15 13:30 | Emergency (ER) | payer MEDICARE ==
[2023-04-15 14:29] VITALS: RESP 18; TEMP 98.7
[2023-04-15] MEDS ORDERED: LORazepam 1 MG TAB PO STA (15:50)
--- NOTE | 2023-04-15 16:32 | ED ---
General Adult HPI - General Chief complaint: ENT Stated complaint: lt ear issues Time Seen by Provider: 04/15/23 14:54 Source: patient, RN notes reviewed Mode of arrival: ambulatory Limitations: no limitations - History of Present Illness Initial comments: 67-year-old female with no significant past medical history presents to the emergency department with a chief complaint of left ear problem. Patient reports that she's had left ear problem the last 3 months. She's been evaluated by her PCP and ENT who had given her antibiotics. She is scheduled to see a step and ENT doctor in 10 days. She denies fever, cough, congestion, sore throat, ear pain, tinnitus, chest pain, shortness of breath - Related Data Home Medications Medication Instructions Recorded Confirmed ALPRAZolam [Xanax] 1 mg PO BID PRN 08/09/16 09/11/21 PARoxetine HCL [Paxil] 40 mg PO DAILY 08/09/16 09/11/21 Benazepril HCl [Lotensin] 20 mg PO QAM 02/07/17 09/11/21 Acetaminophen Tab [Tylenol Tab] 500 - 1,000 mg PO BID PRN 02/08/17 09/11/21 Atorvastatin [Lipitor] 20 mg PO DAILY 05/29/21 09/11/21 Carboxymethylcellulose Sodium 1 drop LEFT EYE BID 05/29/21 09/11/21 [Refresh Tears] Insulin Glargine,Hum.rec.anlog 10 unit SQ QAM 05/29/21 09/11/21 [Lantus Solostar Pen] Pioglitazone HCl 30 mg PO DAILY 05/29/21 09/11/21 Vit C/E/Zn/Coppr/Lutein/Zeaxan 1 each PO DAILY 05/29/21 09/11/21 [Preservision Areds 2 Softgel] amLODIPine BESYLATE 10 mg PO DAILY 05/29/21 09/11/21 metFORMIN HCL [Glucophage] 1,000 mg PO BID-W/MEALS 05/29/21 09/11/21 Cephalexin [Keflex] 500 mg PO Q12HR 09/14/21 09/14/21 Previous Rx's Medication Instructions Recorded traMADol HCL [Ultram] 50 mg PO Q6HR PRN 3 Days #12 tab 09/15/21 Allergies Allergy/AdvReac Type Severity Reaction Status Date / Time Iodinated Contrast Media Allergy Unknown Verified 04/15/23 14:29 ivp dye AdvReac Mild Unknown Uncoded 04/15/23 14:29 Review of Systems ROS Statement: Those systems with pertinent positive or pertinent negative responses have been documented in the HPI. ROS Other: All systems not noted in ROS Statement are negative. Past Medical History Past Medical History: Diabetes Mellitus, Hypertension, Renal Disease Additional Past Medical History / Comment(s): kidney stones, osteoporosis History of Any Multi-Drug Resistant Organisms: None Reported Past Surgical History: Joint Replacement, Orthopedic Surgery Additional Past Surgical History / Comment(s): LEFT WRIST, left hip REPLACED, LITHOTRIPSY, PERCUTANIOUS KIDNEY STONE REMOVAL X2 Past Anesthesia/Blood Transfusion Reactions: No Reported Reaction Past Psychological History: Anxiety, Depression Smoking Status: Current every day smoker Past Alcohol Use History: Rare Past Drug Use History: None Reported - Past Family History Brother(s) Family Medical History: Cancer Additional Family Medical History / Comment(s): COLON General Exam - General Exam Comments Initial Comments: General: Alert, in no acute distress Head: atraumatic normocephalic. Eyes PERRL, EOMI intact, mucous membranes moist Respiratory: Lungs clear to auscultation bilaterally Cardiovascular: Heart rate regular rate and rhythm Abdominal: Soft without guarding or rebound Extremities: Normal inspection with full range of motion and normal capillary refill Neuroogic: alert and oriented 3, CN II-XII intact, able to ambulate with steady gait Skin: warm dry and intact with normal color Limitations: no limitations Course Vital Signs 04/15/23 04/15/23 14:26 16:57 Temperature 98.7 F Pulse Rate 90 80 Respiratory 18 18 Rate Blood Pressure 137/63 132/78 O2 Sat by Pulse 100 100 Oximetry Medical Decision Making - Medical Decision Making Was pt. sent in by a medical professional or institution (, PA, MANAGER PSYCHOLOGY, urgent care, hospital, or shelter...) When possible be specific @ -[No] Did you speak to anyone other than the patient for history (EMS, parent, family, police, friend...)? What history was obtained from this source @ -[No] Did you review nursing and triage notes (agree or disagree)? Why? @ -[I reviewed and agree with nursing and triage notes] Were old charts reviewed (outside hosp., previous admission, EMS record, old EKG, old radiological studies, urgent care reports/EKG's, shelter records)? Report findings @ -[No old charts were reviewed] Differential Diagnosis (chest pain, altered mental status, abdominal pain women, abdominal pain men, vaginal bleeding, weakness, fever, dyspnea, syncope, headache, dizziness, GI bleed, back pain, seizure, CVA, palpatations, mental health, musculoskeletal)? @ -[not applicable] EKG interpreted by me (3pts min.). @ -[As above] X-rays interpreted by me (1pt min.). @ -Physical exam is unremarkable and patient is not complaining of any systemic Symptoms therefore imaging was not performed CT interpreted by me (1pt min.). @ -[None done] U/S interpreted by me (1pt. min.). @ -[None done] What testing was considered but not performed or refused? (CT, X-rays, U/S, labs)? Why? @ -[None] What meds were considered but not given or refused? Why? @ -[None] Did you discuss the management of the patient with other professionals (professionals i.e. , PA, MANAGER PSYCHOLOGY, lab, RT, psych nurse, social science instructor, utility assembler, teacher, juvenile probation officer, complex case manager)? Give summary @ -[No] Was smoking cessation discussed for >3mins.? @ -[No] Was critical care preformed (if so, how long)? @ -[No] Were there social determinants of health that impacted care today? How? (Homelessness, low income, unemployed, alcoholism, drug addiction, transportation, low edu. Level, literacy, decrease access to med. care, fdc, rehab)? @ -[No] Was there de-escalation of care discussed even if they declined (Discuss DNR or withdrawal of care, Hospice)? DNR status @ -[No] What co-morbidities impacted this encounter? (DM, HTN, Smoking, COPD, CAD, Cancer, CVA, ARF, Chemo, Hep., AIDS, mental health diagnosis, sleep apnea, morbid obesity)? @ -[None] Was patient admitted / discharged? Hospital course, mention meds given and route, prescriptions, significant lab abnormalities, going to OR and other pertinent info. @ Discharged. This is a 67-year-old female who presents to the emergency department with left ear problem. Patient had a thorough history and physical exam performed on the ED. Physical exam is essentially unremarkable. Bilateral TMs with good cone of light and no erythema or bulging. Patient did not have imaging performed. Patient was given 1 mg of Ativan with symptomatic relief on the emergency department she is instructed to follow up with her ENT appointment in 10 days. Return precautions were discussed at length. Case discussed with ANDIE Richardson who agrees with plan of care Undiagnosed new problem with uncertain prognosis? @ -[No] Drug Therapy requiring intensive monitoring for toxicity (Heparin, Nitro, Insulin, Cardizem)? @ -[No] Were any procedures done? @ -[No] Diagnosis/symptom? @ -L Ear Problem Acute, or Chronic, or Acute on Chronic? @ -Acute Uncomplicated (without systemic symptoms) or Complicated (systemic symptoms)? @ -Uncomplicated Side effects of treatment? @ -[No] Exacerbation, Progression, or Severe Exacerbation? @ -[No] Poses a threat to life or bodily function? How? (Chest pain, [place], [place], pneumonia, PE, COPD, DKA, ARF, appy, cholecystitis, CVA, Diverticulitis, Homicidal, Suicidal, threat to staff... and all critical care pts) @ -Low likelihood Disposition Clinical Impression: Ear problem Disposition: HOME SELF-CARE Condition: Stable Instructions (If sedation given, give patient instructions): Earache (ED) Additional Instructions: Please follow-up with Dr. Horne's office at your scheduled appointment Please return to the nearest emergency department if symptoms worsen or persist Is patient prescribed a controlled substance at d/c from ED?: No Referrals: Cesar Sylvester DO [Primary Care Provider] - 1-2 days Time of Disposition: 16:32
[2023-04-15 17:00] VITALS: BP 132/78; PULSE 80
== END 2023-04-15 17:00 | disposition home or self-care (01) ==
LOC: EC 13:30
DX: H93.92 Unspecified disorder of left ear (principal); E11.9 Type 2 diabetes mellitus without complications; I10 Essential (primary) hypertension; F41.9 Anxiety disorder, unspecified; F32.A Depression, unspecified; F17.200 Nicotine dependence, unspecified, uncomplicated; Z79.4 Long term (current) use of insulin; Z79.84 Long term (current) use of oral hypoglycemic drugs; Z79.899 Other long term (current) drug therapy; Z91.041 Radiographic dye allergy status
CPT/HCPCS: 99282

== ENCOUNTER → 2023-07-29 | Outpatient (CLI) | payer MEDICARE ==
--- NOTE | 2023-07-29 12:14 | XR ---
EXAMINATION TYPE: XR knee complete bilateral DATE OF EXAM: 07/29/2023 COMPARISON: NONE HISTORY: Pain TECHNIQUE: six views are submitted. FINDINGS: There is diffuse osteopenia. Moderate medial compartment and patellofemoral compartment osteoarthriti s on the right. There is Moderate to severe joint space narrowing of the medial compartment of the left knee and mode rate left patellofemoral joint arthropathy. No erosive changes. Diffuse osteopenia with vascular calcifications. IMPRESSION: 1. Moderate severe left knee osteoarthritis 2. Moderate right knee osteoarthritis. 3. Diffuse osteopenia.
--- NOTE | 2023-07-29 12:15 | XR ---
EXAMINATION TYPE: XR knee standing AP BILAT DATE OF EXAM: 07/29/2023 COMPARISON: NONE HISTORY: Pain TECHNIQUE: Standing AP view of the right and left knee submitted. FINDINGS: Diffuse osteopenia. Moderate medial compartment right knee and moderate to severe medial co mpartment left knee arthropathy. No erosive changes. No acute fracture. IMPRESSION: 1. Moderate right and moderate to severe left osteoarthritis.
== END | disposition home or self-care (01) ==
LOC: RADXRMAIN 11:11
PROVIDERS: ATTEND Family Medicine
DX: M17.0 Bilateral primary osteoarthritis of knee (principal); M19.049 Primary osteoarthritis, unspecified hand; M85.89 Other specified disorders of bone density and structure, multiple sites
CPT/HCPCS: 73565

== ENCOUNTER → 2023-12-26 | Outpatient (CLI) | payer MEDICARE ==
[2023-12-26 21:22] LABS: BUN/Creat Ratio 14.89 Ratio (12.00-20.00); Blood Urea Nitrogen 26.8 mg/dL (9.0-27.0); C-Peptide 6.76 ng/mL (0.81-3.85); Glucose 143 mg/dL (70-110)
[2023-12-26 21:23] LABS: ALT 12 U/L (8-44); AST 21 U/L (13-35); Albumin 4.5 g/dL (3.8-4.9); Albumin/Globulin Ratio 1.41 Ratio (1.60-3.17); Alkaline Phosphatase 98 U/L (41-126); Carbon Dioxide 20.5 mmol/L (21.6-31.8); Chloride 103 mmol/L (96-109); Globulin 3.2 g/dL (1.6-3.3); Potassium 5.6 mmol/L (3.5-5.5); Sodium 137 mmol/L (135-145); Total Bilirubin <0.2 mg/dL (0.3-1.2); Total Protein 7.7 g/dL (6.2-8.2)
== END | disposition home or self-care (01) ==
LOC: LABWHC1 12:29
PROVIDERS: ATTEND Internal Medicine Endocrinology, Diabetes & Metabolism
DX: E11.65 Type 2 diabetes mellitus with hyperglycemia (principal)
CPT/HCPCS: 36415; 80053; 82043; 82570; 84681

== ENCOUNTER → 2024-04-14 | Outpatient (CLI) | payer MEDICARE | END | disposition home or self-care (01) | LOC: LABPAT 11:33 | PROVIDERS: ATTEND Orthopaedic Surgery | DX: Z01.812 Encounter for preprocedural laboratory examination (principal); M17.12 Unilateral primary osteoarthritis, left knee; Z22.322 Carrier or suspected carrier of Methicillin resistant Staphylococcus aureus | CPT/HCPCS: 87070 ==

== ENCOUNTER 2024-04-27 06:27 | Day surgery (SDC) | payer MEDICARE ==
[2024-04-24 09:35] VITALS: BMI 19.9
--- NOTE | 2024-04-27 06:17 | HP ---
HISTORY AND PHYSICAL ANTICIPATED DATE OF SURGERY: 04/27/2024. HISTORY OF PRESENT ILLNESS: Marta Leggett is a 68-year-old patient, seen with symptomatic left knee osteoarthritis. We discussed options regarding treatment. She would like proceed with left total knee arthroplasty. Consent regarding the procedure was obtained. Medical clearance was provided by Dr. Sylvester. PAST MEDICAL HISTORY: Hypertension. PAST SURGICAL HISTORY: 1. Lithotripsy. 2. ORIF, wrist. 3. Carpal tunnel release. DAILY MEDICATIONS: 1. Amlodipine. 2. Benazepril. 3. Paxil. 4. Tylenol. ALLERGIES: IVP dye. SOCIAL HISTORY: She denies tobacco use. PHYSICAL EVALUATION OF THE LEFT KNEE: Her range of motion is -1/290 degrees. Tenderness along the medial joint line. Crepitus, medial patellofemoral compartments with range of motion. Pain with patellofemoral compression. Ligaments stable. Hip rotation is without pain. Distal neurovascular exam is intact. IMAGING STUDIES: Radiographs of the left knee reveal severe osteoarthritic changes. IMPRESSION: 1. Left knee osteoarthritis. 2. Hypertension. PLAN: Left total knee arthroplasty. MMODL / IJN: [id number] /
[~2024-04-27 06:27] MED LIST changes: -FUROSEMIDE 10 MG/ML 2 ML VIAL IV ONE; +TRANEXAMIC 1,000 MG/100ML-NACL 1,000 MG in SALINE 1 100ML.BAG IVPB PRN
[2024-04-27] MEDS: IV FLUID CONTINUATION 1,000 ML IV ONE ×2 (07:28→12:18)
[2024-04-27 07:32] LABS: Glucose,Whole Blood 137 mg/dL (70-110)
[2024-04-27] MEDS: LACTATED RINGERS 1,000 ML IV SCH ×2 (07:37→12:17)
[2024-04-27] MEDS: DEXAMETHASONE SOD PHOSPHATE 4 MG/ML 1 ML VIAL IV ONE (07:37)
[2024-04-27] MEDS: MELOXICAM 7.5 MG TAB PO PRN (07:38)
[2024-04-27] MEDS: ONDANSETRON 4 MG/2 ML VIAL IVP ONE (07:38)
[2024-04-27] MEDS: ACETAMINOPHEN TAB 500 MG TAB PO PRN (07:38)
[2024-04-27] MEDS: MIDAZOLAM 2 MG/2 ML VIAL IV ONE (08:02)
[2024-04-27] MEDS ORDERED: ROPIVACAINE 5 MG/ML 30 ML VIAL ONE (08:47)
[2024-04-27] MEDS ORDERED: PROPOFOL 10 MG/ML 20 ML VIAL IV ONE (08:47)
[2024-04-27] MEDS ORDERED: DEXAMETHASONE SOD PHOSPHATE 4 MG/ML 1 ML VIAL ONE (08:47)
[2024-04-27] MEDS ORDERED: TRANEXAMIC 1,000 MG/100ML-NACL PREMIX BAG ONE (08:47)
[2024-04-27] MEDS ORDERED: PHENYLEPHRINE 10 MG/ML VIAL ONE (08:47)
[2024-04-27] MEDS ORDERED: MIDAZOLAM 2 MG/2 ML VIAL ONE (08:47)
[2024-04-27] MEDS ORDERED: ePHEDrine 50 MG/ML 1 ML VIAL ONE (08:47)
[2024-04-27] MEDS: ceFAZolin 1,000 MG in SODIUM CHLORIDE 0.9% 1,000 ML IRRIGATION ONE (09:13)
[2024-04-27] MEDS: LACTATED RINGERS 1,000 ML IV ONE (09:28)
[2024-04-27] MEDS ORDERED: ONDANSETRON 4 MG/2 ML VIAL IVP PRN (10:23)
[2024-04-27] MEDS ORDERED: HYDROmorphone 0.5 MG/0.5 ML SYRINGE IVP PRN ×2 (10:23)
[2024-04-27] MEDS ORDERED: NALOXONE 0.4 MG/ML 1 ML VIAL IV PRN (10:23)
--- NOTE | 2024-04-27 10:23 | P.OP ---
Date of Procedure: 04/27/24 Preoperative Diagnosis: Left knee osteoarthritis Postoperative Diagnosis: Left knee osteoarthritis Procedure(s) Performed: Left total knee arthroplasty Implants: 1. DePuy attune size 5 narrow left cruciate retaining cemented femur 2. DePuy attune size 4 fixed-bearing cemented tibial baseplate 3. DePuy attune size 5 fixed-bearing cruciate retaining 6 mm polyethylene tibial insert 4. DePuy attune 35 mm all polyethylene cemented patella Anesthesia: regional (Adductor canal catheter, iPAQ block), spinal Surgeon: Mac Beckwith Educational Administration Teacher #1: Norris Head Estimated Blood Loss (ml): 35 Pathology: none sent Condition: stable Disposition: PACU Indications for Procedure: 68-year-old patient seen with symptomatic left knee osteoarthritis. After having treatment options discussed, she elected to proceed with total knee arthroplasty. Operative Findings: See description of procedure Description of Procedure: Patient was taken to the operative suite after having an adductor canal catheter placed by the department of anesthesia. Patient underwent a spinal anesthetic by the department of anesthesia. Patient was given preoperative IV intake antibiotics and TXA. A well-padded tourniquet was placed about the left lower extremity. The lower extremity was then prepped and draped in the normal sterile orthopedic fashion. The extremity was elevated, a tourniquet was insufflated to 300. A standard anterior incision was made sharply through skin. Dissection was taken down through the subcutaneous soft tissues down to the extensor mechanism. A medial arthrotomy was performed, patella was everted and knee was flexed. There was advanced osteoarthritis noted. I introduced my distal intramedullary femoral drill. I then introduced the distal femoral cutti ng jig. Hermann OROZCO secured the cutting jig with 2 pins. I held retractors in position while Hermann OROZCO performed the distal femoral resection through the guide area we now removed her distal femoral cutting guide. We now placed our 4-in-1 femoral cutting block and positioned and it was secured with 2 pins by Hermann OROZCO while I held the block in position. The distal femoral finishing was now completed. A proximal tibial cutting guide was positioned. I held the guide in the appropriate position with both hands well Hermann OROZCO inserted stabilizing pins into the guide. Proximal tibial cut was made. We now placed a trial femoral component into position, along with an appropriate size tibial tray and insert. We now took the knee through range of motion and had full extension good flexion and good overall soft tissue balance noted. The patella was everted and stabilized with 2 towel clips held by Hermann OROZCO while I performed a flush with patellar quad tendon utilizing a fresh sawblade. We templated the patella, appropriate drill holes were made. An appropriate trial patella was positioned, knee was taken through full range of motion with the patella tracking very nicely. The trial patella was removed. Drill holes were made through the femoral component. All trial components were removed after marking off the appropriate rotation of the tibia. Retractors were now positioned along the proximal tibia. An appropriate keel punch was made with the appropriate size tibial guide by myself on Hermann OROZCO assisted by holding retractors. At this point appropriate size implants were chosen and opened. The joint was irrigated copiously with pulse lavage mechanical irrigation. The wound was irrigated with pulse lavage mechanical irrigation. We mixed antibiotic methylmethacrylate. We placed the knee into flexion. We placed multiple retractors assisted by Hermann OROZCO to expose the proximal tibia. Once the methyl methacrylate was ready, the tibial component was cemented into place removing any excess methylmethacrylate form by both myself and Hermann OROZCO. The femoral component was cemented into place removing the removing any excess methylmethacrylate performed by both myself and Hermann OROZCO. We then inserted the appropriate size polyethylene tibial insert. We made sure that it was locked into position. We took the knee into full extension, and then back in a flexion making sure we had removed any excess methylmethacrylate. The patellar component was then cemented down and secured with clamp. Excess methylmethacrylate removed. We kept the knee in full extension, patellar clamp in position until methylmethacrylate had hardened. Once it had hardened the patellar clamp was removed. The knee was taken through full range of motion. The patella tracked nicely. There was good soft tissue balancing. The tourniquet was now released. Additional hemostasis was achieved via electrocautery. A second gram of TXA was given. The wound again was irrigated with pulse lavage mechanical irrigation. The extensor mechanism was repaired with Vicryl. We checked the repair with range of motion and it was stable. The subcutaneous soft tissues were repaired with Vicryl in layers. The skin was approximated with pernio/Dermabond. Sterile dressings were applied followed by loose web roll and Jeremy bandage. The patient was transferred to a bed, and taken to recovery in stable and satisfactory condition. Hermann OROZCO assisted with this complex procedure.
[2024-04-27 10:56] LABS: Glucose,Whole Blood 120 mg/dL (70-110)
[2024-04-27] MEDS: ROPIVACAINE 1,100 MG, SODIUM CHLORIDE 0.9% 500 ML 330 ML, EMPTY PAIN BALL 1 EACH MISCELLANE PRN (11:23)
[2024-04-27] MEDS: HYDROmorphone 0.5 MG/0.5 ML SYRINGE IVP PRN ×2 (11:59→20:53)
--- NOTE | 2024-04-27 12:35 | XR ---
EXAMINATION TYPE: XR knee limited LT DATE OF EXAM: 04/27/2024 11:47 AM CLINICAL INDICATION:Female, 68 years old with history of Evaluation for Postop abnormality and alignm ent; [facility] COMPARISON: 07/29/2020. TECHNIQUE: XR knee limited LT; examined in Frontal, lateral and oblique projections. FINDINGS: Status post total knee arthroplasty changes with hardware in appropriate alignment and in tact. No evidence of fracture. Subcutaneous lucencies and lucencies within the joint consistent with surgical changes. IMPRESSION: Status post total knee arthroplasty changes with hardware intact and appropriate alignment. No fractu res identified.
[2024-04-27] MEDS: ALBUMIN HUMAN 5% 250 ML in EMPTY BAG 1 BAG IVPB ONE (12:48)
[2024-04-27] MEDS: HYDROcodone/APAP 5-325MG 1 EACH TAB PO PRN (18:16)
[2024-04-27] MEDS: SENNOSIDES-DOCUSATE SODIUM 1 EACH TAB PO SCH (20:53)
[2024-04-27] MEDS: ASPIRIN 325 MG TAB PO SCH (20:53)
[2024-04-27 20:57] LABS: Glucose,Whole Blood 288 mg/dL (70-110)
--- NOTE | 2024-04-27 22:36 | P.ANPRN ---
Procedure Note - Anesthesia - Nerve Block Performed Left Adductor Canal Infusion Time Out Performed: Yes Date of Procedure: 04/27/24 Procedure Start Time: 08:15 Procedure Stop Time: :22 Location of Patient: PreOp Indication: Acute Post-Operative Pain, Requested by Surgeon Sedation Type: Sedate with meaningful contact maintained Preparation: Sterile Prep, Sterile Dressing Position: Supine Catheter: Indwelling Needle Types: Pajunk Needle Gauge: 21 Ultrasound used to visualize needle placement: Yes Ultrasound used to observe medication spread: Yes Blood Aspirated: No Pain Paresthesia on Injection Noted: No Resistance on Injection: Normal Image Stored and Saved: Yes Events: Uneventful and Well Tolerated (Ropivacaine 0.5% 20 cc dexamethasone 4 mg)
--- NOTE | 2024-04-27 22:38 | P.ANPRN ---
Procedure Note - Anesthesia - Nerve Block Performed Left iPack Single Time Out Performed: Yes Date of Procedure: 04/27/24 Procedure Start Time: : Procedure Stop Time: Location of Patient: PreOp Indication: Acute Post-Operative Pain, Requested by Surgeon Sedation Type: Sedate with meaningful contact maintained Preparation: Sterile Prep Position: Supine Needle Types: Pajunk Needle Gauge: 21 Ultrasound used to visualize needle placement: Yes Ultrasound used to observe medication spread: Yes Blood Aspirated: No Pain Paresthesia on Injection Noted: No Resistance on Injection: Normal Image Stored and Saved: Yes Events: Uneventful and Well Tolerated (Ropivacaine 0.5% 25 cc plus dexamethasone 4 mg)
[2024-04-28 06:00] LABS: Glucose,Whole Blood 152 mg/dL (70-110)
[2024-04-28 07:31] VITALS: BP 113/72; PULSE 91; RESP 17; TEMP 98.3
[2024-04-28] MEDS: HYDROcodone/APAP 7.5-325MG 1 EACH TAB PO PRN (08:11)
[2024-04-28 08:50] LABS: Basophils # (A) 0.03 X 10*3/uL (0.00-0.10); Basophils % (A) 0.2 %; Eosinophils # (A) 0 X 10*3/uL (0.04-0.35); Eosinophils % (A) 0 %; HCT 32.1 % (37.2-46.3); HGB 9.9 g/dL (12.0-15.0); Lymphocytes % (A) 5.6 %; MCHC 30.8 g/dL (32.0-37.0); MCV 103.9 FL (80.0-97.0); Mean Platelet Volume 10.3 FL (9.5-12.2); Monocytes % (A) 7.9 %; NRBC Per 100 WBC 0 X 10*3/uL (0.00-0.01); Neutrophils # (A) 15.21 X 10*3/uL (1.80-7.70); Neutrophils % (A) 85.6 %; Platelet Count 203 X 10*3/uL (140-440); RBC 3.09 X 10*6/uL (4.10-5.20); RDW 14.2 % (11.5-14.5); WBC 17.76 X 10*3/uL (4.50-10.00)
--- NOTE | 2024-04-28 09:53 | P.PN ---
Subjective Progress Note Date: 04/28/24 Principal diagnosis: Left knee osteoarthritis Patient was seen at bedside this morning sitting up at the edge of the bed with dressing present over left knee. Patient says she did do well with therapy this morning walked down the hallway and up and down steps without issue. Patient says she is looking forward to going home later today. Patient says she does need a walker at home. Patient says the pain is controlled with medication. Patient says her son will be able to help her out when she goes home later today. Patient says she has urinated since surgery yesterday without issue. Patient says she has not had a bowel movement yet, however, patient says she has been passing gas. Patient denies chest pain, fever, shortness of breath, nausea, vomiting, change in vision, loss of bowel/bladder control. Objective - Vital Signs Vital signs: Vital Signs Temp 98.3 F 04/28/24 06:56 Pulse 91 04/28/24 06:56 Resp 17 04/28/24 06:56 BP 113/72 04/28/24 06:56 Pulse Ox 94 L 04/28/24 06:56 FiO2 Intake & Output 04/27/24 04/28/24 04/28/24 18:59 06:59 18:59 Intake Total 3051 Output Total 485 Balance 2566 Weight 53.6 kg Intake: IV 3051 Output: Urine 450 Estimated Blood Loss 35 Other: Voiding Method Toilet # Voids 1 2 - Exam Left knee: Incision is clean, dry, and intact. The silver foam dressing is in good condition. There is minimal soft tissue swelling and ecchymosis surrounding the medial and lateral aspects of the incision. Calf is soft, no tenderness with palpation. Plantar flexion, dorsiflexion, EHL, FHL are intact. Sensory exam to light touch throughout the extremity is intact, dorsal pedis pulses 2+. - Labs CBC & Chem 7: 04/28/24 03:43 Labs: Abnormal Lab Results - Last 24 Hours (Table) 04/27/24 04/27/24 04/28/24 Range/Units 10:45 20:55 03:43 WBC 17.76 H (4.50-10.00) X 10*3/uL RBC 3.09 L (4.10-5.20) X 10*6/uL Hgb 9.9 L (12.0-15.0) g/dL Hct 32.1 L (37.2-46.3) % MCV 103.9 H (80.0-97.0) FL MCHC 30.8 L (32.0-37.0) g/dL Immature Gran # 0.12 H (0.00-0.04) X 10*3/uL Neutrophils # 15.21 H (1.80-7.70) X 10*3/uL Monocytes # 1.40 H (0.20-1.00) X 10*3/uL Eosinophils # 0 L (0.04-0.35) X 10*3/uL POC Glucose (mg/dL) 120 H 288 H (70-110) mg/dL 04/28/24 Range/Units 05:58 WBC (4.50-10.00) X 10*3/uL RBC (4.10-5.20) X 10*6/uL Hgb (12.0-15.0) g/dL Hct (37.2-46.3) % MCV (80.0-97.0) FL MCHC (32.0-37.0) g/dL Immature Gran # (0.00-0.04) X 10*3/uL Neutrophils # (1.80-7.70) X 10*3/uL Monocytes # (0.20-1.00) X 10*3/uL Eosinophils # (0.04-0.35) X 10*3/uL POC Glucose (mg/dL) 152 H (70-110) mg/dL Assessment and Plan Assessment: 1. Left knee osteoarthritis -Postop day 1 status post left total knee arthroplasty Plan: 1. Left knee osteoarthritis -left total knee arthroplasty performed yesterday, 04/27/2024. Patient stable bedside this morning. Patient did do well with PT/OT this morning. Patient does have a walker for home. Discharge home today with health services. 2. Appreciate medical management 3. Pain management -[place]; Tylenol 4. DVT prophylaxis -aspirin 5. GI prophylaxis -senna 6. PT/OT -weightbearing as tolerated with walker 7. Encourage incentive spirometer use 8. Discharge planning -home today with health services Time with Patient: Less than 30
--- NOTE | 2024-04-28 09:59 | P.DS ---
Providers Date of admission: 04/27/2024 Expected date of discharge: 04/28/24 Attending physician: Mac Beckwith Consults: 04/27/24 10:23 Consult Physician Routine Consulting Provider: Jesus Lester Consult Reason/Comments: Medical management Do you want consulting provider notified?: Yes Primary care physician: [facility] Course: Date of admission: 04/27/2024 Date of discharge: 04/28/2024 Admission diagnosis: Left knee osteoarthritis Discharge diagnosis: Same Attending physician: Dr. Beckwith Surgical procedures: Left total knee arthroplasty Brief history: Patient is a 68-year-old female with a history of progressive primary left knee osteoarthritis. At this point patient has failed conservative treatment measures and has opted to proceed with a elective left total knee arthroplasty. Hospital course: Details of patient's surgery can be found in operative report. Patient tolerated the procedure well and was subsequently transported to orthopedic floor. Patient's orthopeidc and medical care was provided daily. Patient had daily laboratory tests performed for evaluation of overall blood counts. Patient had daily physical therapy to include strengthening range of motion as well as education with walker ambulation. Patient was treated with aspirin for their postoperative DVT prophylaxis during their inpatient stay. Patient was noted to have a relatively uneventful postoperative course. Patient reported satisfactory pain control with oral pain medications by postoperative day 1. Patient showed satisfactory progress with physical therapy. Patient moved steadily through the program and had no difficulty meeting the goals by postoperative day 1. Given patient's otherwise satisfactory course and having met physical therapy goals, plan is to discharge patient home with health services on postoperative day 1. Discharge condition/disposition: Patient will be discharged home with health services in stable condition. Discharge medications: Instructions are given on resumption of patient's normal daily medications per primary care recommendation, in addition patient will be prescribed [place]; senna; aspirin 81 mg twice daily x 30 days. Discharge instructions: 1. Wound care and infection precautions, keep incision dry and covered while showering, no lotions, creams, moisturizers. No soaking, tubs, pools, hottubs. Do not scrub over the incision. 2. Weight-bear as tolerated with walker / cane until follow-up. 3. Ice and elevate when necessary. Do not exceed 20 minutes per hour with ice pack. 4. Utilize compression sleeve until seen at first follow up appointment. 5. Visiting nursing care. 6. Home physical therapy including home CPM. 7. Pain meds and anticoagulants per prescription. 8. Pain medication has potential to cause constipation. Increase oral fluid and fiber intake. Contact primary care provider if you have not had a bowel movement within 48 hours after discharge 9. No anti-inflammatory medication until discussed at first post operative visit, this including Motrin, Aleve, Mobic, Diclofenac. 10. Follow up in office at 2 weeks postop with Hermann Head PA-C / Johnny Sharpe PA-C 11. Follow up with your primary care doctor 7-10 days after discharge. 12. Contact [facility] with any questions, . Assessment: Left knee osteoarthritis Procedures: Left total knee arthroplasty Patient Condition at Discharge: Good Plan - Discharge Summary Discharge Rx Participant: Yes New Discharge Prescriptions: New Aspirin [Adult Low Dose Aspirin EC] 81 mg PO BID #60 tab HYDROcodone/APAP 5-325MG [[place] 5-325] 1 - 2 tab PO Q6HR PRN #28 tab PRN Reason: Pain Sennosides/Docusate Sodium [Senna Plus 8.6-50 mg Softgel] 1 each PO DAILY #20 capsule No Action ALPRAZolam [Xanax] 1 mg PO BID PRN PRN Reason: Anxiety PARoxetine HCL [Paxil] 40 mg PO DAILY Benazepril HCl [Lotensin] 20 mg PO QAM Acetaminophen Tab [Tylenol Tab] 500 - 1,000 mg PO BID PRN PRN Reason: Pain Insulin Glargine,Hum.rec.anlog [Lantus Solostar Pen] 10 unit SQ QAM Atorvastatin [Lipitor] 20 mg PO DAILY metFORMIN HCL [Glucophage] 1,000 mg PO BID-W/MEALS Pioglitazone HCl 30 mg PO DAILY traMADol HCL [Ultram] 50 mg PO Q6HR PRN 3 Days #12 tab PRN Reason: Pain amLODIPine BESYLATE 10 mg PO DAILY Vit C/E/Zn/Coppr/Lutein/Zeaxan [Preservision Areds 2 Softgel] 1 each PO DAILY Carboxymethylcellulose Sodium [Refresh Tears] 1 drop LEFT EYE BID Discharge Medication List ALPRAZolam [Xanax] 1 mg PO BID PRN 08/09/16 [History] PARoxetine HCL [Paxil] 40 mg PO DAILY 08/09/16 [History] Benazepril HCl [Lotensin] 20 mg PO QAM 02/07/17 [History] Acetaminophen Tab [Tylenol Tab] 500 - 1,000 mg PO BID PRN 02/08/17 [History] Atorvastatin [Lipitor] 20 mg PO DAILY 05/29/21 [History] Carboxymethylcellulose Sodium [Refresh Tears] 1 drop LEFT EYE BID 05/29/21 [History] Insulin Glargine,Hum.rec.anlog [Lantus Solostar Pen] 10 unit SQ QAM 05/29/21 [History] Pioglitazone HCl 30 mg PO DAILY 05/29/21 [History] Vit C/E/Zn/Coppr/Lutein/Zeaxan [Preservision Areds 2 Softgel] 1 each PO DAILY 05/29/21 [History] amLODIPine BESYLATE 10 mg PO DAILY 05/29/21 [History] metFORMIN HCL [Glucophage] 1,000 mg PO BID-W/MEALS 05/29/21 [History] traMADol HCL [Ultram] 50 mg PO Q6HR PRN 3 Days #12 tab 09/15/21 [Rx] Aspirin [Adult Low Dose Aspirin EC] 81 mg PO BID #60 tab 04/28/24 [Rx] HYDROcodone/APAP 5-325MG [[place] 5-325] 1 - 2 tab PO Q6HR PRN #28 tab 04/28/24 [Rx] Sennosides/Docusate Sodium [Senna Plus 8.6-50 mg Softgel] 1 each PO DAILY #20 capsule 04/28/24 [Rx] Follow up Appointment(s)/Referral(s): Norris Head PAC [PHYSICIAN GREASE MAKER HEAD] - 2 Weeks Patient Instructions/Handouts: Knee Replacement (DC), Knee Replacement (GEN) Activity/Diet/Wound Care/Special Instructions: Orthopedic Discharge Instructions: 1. Wound care and infection precautions, keep incision dry and covered while showering, no lotions, creams, moisturizers. No soaking, pools, hot tubs. Do not scrub over incision. 2. Weight-bear as tolerated with walker / cane until follow-up. 3. Ice and elevate when necessary. Do not exceed 20 minutes per hour with ice pack. 4. Utilize compression sleeve until seen at first follow up appointment. 5. Pain meds and anticoagulants per prescription. 6. Pain medication has potential to cause constipation. Increase oral fluid and fiber intake. Contact primary care provider if you have not had a bowel movement within 48 hours after discharge. 7. No anti-inflammatory medication until discussed at first post operative visit, this including Motrin, Aleve, Mobic, Diclofenac. 8. Follow up in office at 2 weeks postop with Hermann Head PA-C / Johnny Sharpe PA-C 9. Follow up with your primary care doctor 7-10 days after discharge. 10. Contact [facility] with any questions, . Keep incision clean, dry, intact. While showering, cover silver foam dressing with Saran wrap. Keep silver foam dressing on until 05/04/2024. Once dressing is removed, it is okay to shower directly over incision. Discharge Disposition: HOME WITH HOME HEALTH SERVICES
--- NOTE | 2024-04-28 10:40 | P.PN ---
Progress Note - Text 04/28/24 630am 68-year-old female status post total knee replacement. Patient has a On-Q pump for postop pain control with a solution of 80 cc an hour with a VAS of 7. Dressing clean dry and intact. Plan to continue On-Q pump infusion
[2024-04-28] MEDS ORDERED: MULTIVITAMINS, THERA 1 EACH TAB PO SCH (12:00)
== END 2024-04-28 11:32 | disposition home health service (06) ==
LOC: OR 06:27 → 4SSUR 10:36 → OR 04-28 11:32
PROVIDERS: ATTEND Orthopaedic Surgery
DX: M17.12 Unilateral primary osteoarthritis, left knee (principal); I10 Essential (primary) hypertension; Z79.899 Other long term (current) drug therapy; Z91.041 Radiographic dye allergy status; Z72.0 Tobacco use
CPT/HCPCS: 97161; 64999; 64448; 85025; 73560; 27447; C1776; C1713 ×2; C1751; P9045; J2250; J1100; J0690 ×3; J2405; J2795; J1170 ×2

== ENCOUNTER → 2024-08-13 | Outpatient (CLI) | payer MEDICARE ==
--- NOTE | 2024-08-13 14:14 | XR ---
EXAMINATION TYPE: XR knee complete LT DATE OF EXAM: 08/13/2024 1:45 PM COMPARISON: 04/27/2024 CLINICAL INDICATION: Female, 69 years old with history of M19.90 UNSPECIFIED OSTEOARTHRITIS, UNSPECIF IED SITE; [facility] TECHNIQUE: XR knee complete LT 3 views submitted. FINDINGS: Status post total knee arthroplasty changes with hardware in appropriate alignment and in tact. No evidence of fracture. IMPRESSION: Status post total knee arthroplasty changes with hardware intact and appropriate alignment. No fractu res identified. [facility], , 08/13/2024 2:11 PM
== END | disposition home or self-care (01) ==
LOC: RADXRMAIN 12:58
PROVIDERS: ATTEND Family Medicine
DX: M17.12 Unilateral primary osteoarthritis, left knee (principal); Z96.659 Presence of unspecified artificial knee joint

== ENCOUNTER → 2024-08-31 | Outpatient (CLI) | payer MEDICARE ==
[2024-08-31 21:37] LABS: BUN/Creat Ratio 10.75 Ratio (12.00-20.00); Blood Urea Nitrogen 21.5 mg/dL (9.0-27.0); Calcium 9.9 mg/dL (8.7-10.3); Carbon Dioxide 17.8 mmol/L (21.6-31.8); Chloride 105 mmol/L (96-109); Glucose 143 mg/dL (70-110); Iron 47 UG/DL (50-170); Magnesium 1.7 mg/dL (1.5-2.4); Phosphorus 3.5 mg/dL (2.4-5.1); Potassium 3.9 mmol/L (3.5-5.5); Sodium 139 mmol/L (135-145); Total Iron Binding Capacity 435 UG/DL (228-460); Uric Acid 6.1 mg/dL (2.9-7.7)
[2024-08-31 22:04] LABS: Basophils # (A) 0.09 X 10*3/uL (0.00-0.10); Basophils % (A) 1.1 %; Eosinophils # (A) 0.54 X 10*3/uL (0.04-0.35); Eosinophils % (A) 6.7 %; HCT 34.3 % (37.2-46.3); HGB 10.6 g/dL (12.0-15.0); Lymphocytes # (A) 1.53 X 10*3/uL (0.90-5.00); Lymphocytes % (A) 18.9 %; MCH 30.6 pg (27.0-32.0); MCHC 30.9 g/dL (32.0-37.0); MCV 99.1 FL (80.0-97.0); Mean Platelet Volume 9.6 FL (9.5-12.2); Monocytes # (A) 0.81 X 10*3/uL (0.20-1.00); NRBC Per 100 WBC 0 X 10*3/uL (0.00-0.01); Neutrophils # (A) 5.02 X 10*3/uL (1.80-7.70); Neutrophils % (A) 62.2 %; Platelet Count 393 X 10*3/uL (140-440); RBC 3.46 X 10*6/uL (4.10-5.20); RDW 14.2 % (11.5-14.5); WBC 8.08 X 10*3/uL (4.50-10.00)
== END | disposition home or self-care (01) ==
LOC: LABWHC1 16:06
PROVIDERS: ATTEND Internal Medicine Nephrology
DX: N18.31 Chronic kidney disease, stage 3a (principal)
CPT/HCPCS: 36415; 80048; 82306; 83540; 83550; 83735; 83883; 83970; 84100; 84550; 85025

== ENCOUNTER → 2024-09-03 | Outpatient (CLI) | payer MEDICARE ==
--- NOTE | 2024-09-03 13:40 | US ---
EXAMINATION TYPE: US renals and bladder DATE OF EXAM: 09/03/2024 COMPARISON: Nuclear medicine Lasix renogram 01/31/2023, 01/09/2022, MR kidney 09/06/2021 CT abdomen pelvi s 05/10/2022 CLINICAL INDICATION: Female, 69 years old with history of N18.31 CHRONIC KIDNEY DISEASE, STAGE 3A; ck d 3 Left kidney obscured by bowel gas. TECHNIQUE: Grayscale imaging of the bilateral kidneys and urinary bladder: FINDINGS: EXAM MEASUREMENTS: Right Kidney: 9.0 x 3.4 x 3.0 cm Left Kidney: 5.1 x 3.0 x 2.0 cm Right Kidney: No hydronephrosis or masses seen Left Kidney:Left kidney lower pole obscured by bowel gas. 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 There is no evidence for hydronephrosis at this p oint in time. No nephrolithiasis is seen. No masses are identified however there is poor visualizat ion of the left aspect of the kidney secondary to overlying bowel gas. The urinary bladder is anechoi c. IMPRESSION: 1. No overt evidence for hydronephrosis, nephrolithiasis, or solid mass however there is poor evaluat ion of the left aspect of the kidney due to overlying bowel gas. 2. 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 [facility], , 09/03/2024 1:38 PM
== END | disposition home or self-care (01) ==
LOC: RADUSWWP 12:57
PROVIDERS: ATTEND Internal Medicine Nephrology
DX: N18.31 Chronic kidney disease, stage 3a (principal); Q63.1 Lobulated, fused and horseshoe kidney
CPT/HCPCS: 76770